=== PATIENT | female | born 1940 | race Caucasian/White ===

== ENCOUNTER 2022-02-13 16:15 | Inpatient (IN) | payer OTHER ==
[~2022-02-13] VITALS: Ht 160 cm; Wt 73.0 kg
[~2022-02-13 16:15] MED LIST: ACET325T PO; ATEN-167 PO; LEVO50CA4 PO; LOSA1TAB15 PO; OXYC-128 PO; PANT20TA2 PO; ROCPM1 IV; SIMV40TA2 PO
[2022-02-13 16:17] VITALS: BP_SYST 115
[2022-02-13] MEDS ORDERED: SYN50 PO (16:40)
[2022-02-13] MEDS ORDERED: CYCL10TA24 PO (16:40)
[2022-02-13] MEDS ORDERED: HYDR-3927 PO (16:40)
[2022-02-13] MEDS ORDERED: ATEN-168 PO (16:40)
[2022-02-13 17:56] LABS: BASOPHILS # (AUTO) 0.1 K/uL (0.0-0.2); BASOPHILS % (AUTO) 0.9 % (0.0-2.0); EOSINOPHILS # (AUTO) 0.6 K/uL (0.0-0.4); EOSINOPHILS % (AUTO) 3.7 % (0.0-4.0); HEMATOCRIT 37.4 % (36-48); HEMOGLOBIN 12.1 g/dL (12.0-16.0); LYMPHOCYTES # (AUTO) 1.3 K/uL (1.0-5.5); LYMPHOCYTES % (AUTO) 8.8 % (20.5-51.5); MEAN CORPUSCULAR HEMOGLOBIN 28 pg (27-31); MEAN CORPUSCULAR HGB CONC 32 % (32-36); MEAN CORPUSCULAR VOLUME 88 fL (79.0-98.0); MONOCYTES # (AUTO) 1.4 K/uL (0.0-1.0); MONOCYTES % (AUTO) 9.5 % (1.7-9.3); NEUTROPHILS # (AUTO) 11.8 K/uL (1.8-7.7); NEUTROPHILS % (AUTO) 77.1 % (40.0-70.0); PLATELET COUNT (AUTO) 529 K/uL (130-430); RED BLOOD CELL COUNT(AUTO) 4.25 MIL/uL (4.2-6.2); RED CELL DISTRIBUTION WIDTH 16.2 % (9.0-15.0); WHITE BLOOD COUNT (AUTO) 15.3 K/uL (4.8-10.8)
[2022-02-13 18:07] LABS: ANION GAP 11 (5-15); CALCIUM 10.1 mg/dL (8.4-11.0); CHLORIDE 101 mmol/L (98-107); CREATININE 1.36 mg/dL (0.55-1.30); GLUCOSE 100 mg/dL (70-99); UREA NITROGEN, BLOOD 35 mg/dL (8-21)
[2022-02-13 18:13] LABS: ALANINE AMINOTRANSFERASE 12 U/L (12-78); ALBUMIN 3.2 g/dL (3.4-4.8); ASPARTATE AMINOTRANSFERASE 20 U/L (10-37); TOTAL BILIRUBIN 0.5 mg/dL (0.0-1.0)
[2022-02-13 18:14] LABS: INR 1.8 (0.8-1.2); PROTHROMBIN TIME 18.6 SECS (9.5-12.5)
[2022-02-13] MEDS ORDERED: WARF1TAB84 PO (18:20)
[2022-02-13] MEDS ORDERED: HYDROcodone/ACETAMIN 5-325 MG TAB (NORCO/ VICODIN) PO ONE (19:30)
[2022-02-13 20:20] LABS: BILIRUBIN,URINE NEGATIVE (NEGATIVE); BLOOD, URINE 2+ (NEGATIVE); CLARITY/URINE TURBID (CLEAR); COLOR,URINE YELLOW (YELLOW); GLUCOSE,URINE NEGATIVE (NEGATIVE); KETONES,URINE NEGATIVE (NEGATIVE); LEUKOCYTE ESTERASE ,URINE 3+ (NEGATIVE); NITRITE, URINE NEGATIVE (NEGATIVE); PROTEIN URINE 1+ (NEGATIVE); UROBILINOGEN,URINE 0.2 (0.2-1.0)
[2022-02-13 20:30] LABS: BACTERIA,URINE MANY /HPF (None Seen); RBC,URINE 20-50 /HPF (0-3); WBC,URINE >100 /HPF (0-3)
[2022-02-13] MEDS ORDERED: cefTRIAXone 1 GM in D5W 50 ML IV ONE (23:00)
[2022-02-13] MEDS ORDERED: NACL 0.9% 1,000 ML IV ONE (23:00)
[2022-02-13] MEDS ORDERED: cefTRIAXone 1 GM VIAL ONE (23:28)
[2022-02-14] MEDS ORDERED: HYDROcodone/ACETAMIN 10-325 MG TAB PO ONE (03:00)
[2022-02-14 11:01] VITALS: BP_SYST 126
[2022-02-14] MEDS ORDERED: ACETAMINOPHEN 325 MG TABLET PO PRN (11:45)
[2022-02-14] MEDS ORDERED: ONDANSETRON HCL 4 MG/2 ML VIAL IVP PRN (11:45)
[2022-02-14] MEDS ORDERED: NALOXONE HCL 0.4 MG/ML AMP (NARCAN) IVP PRN (11:45)
[2022-02-14] MEDS ORDERED: LEVOTHYROXINE SODIUM 0.05 MG TABLET PO ONE (11:45)
[2022-02-14] MEDS ORDERED: LEVOTHYROXINE SODIUM PO SCH (11:45)
[2022-02-14] MEDS ORDERED: LOSARTAN POTASSIUM 50 MG TABLET (COZAAR) PO ONE (12:00)
[2022-02-14] MEDS ORDERED: HYDROCHLOROTHIAZIDE 25 MG TABLET (HCTZ) PO ONE (12:00)
[2022-02-14] MEDS ORDERED: PANTOPRAZOLE SODIUM 40 MG TAB PO ONE (12:00)
[2022-02-14] MEDS ORDERED: ATENOLOL 50 MG TABLET (TENORMIN) PO ONE (12:00)
[2022-02-14] MEDS: HYDROcodone/ACETAMIN 10-325 MG TAB PO PRN ×2 (13:29→21:22)
[2022-02-14] MEDS: NORMAL SALINE 5 ML DISP.SYRIN IVF SCH ×4 (13:31→21:18)
[2022-02-14 13:36] VITALS: BP_SYST 126
[2022-02-14 15:42] VITALS: BP_SYST 110
[2022-02-14 16:00] VITALS: BP_SYST 110
[2022-02-14] MEDS ORDERED: WARFARIN SODIUM 1 MG TABLET PO SCH (18:00)
[2022-02-14 20:00] VITALS: BP_SYST 104
[2022-02-14] MEDS: SIMVASTATIN 40 MG TABLET PO SCH (21:17)
[2022-02-14] MEDS: cefTRIAXone 1 GM IVPB PREMIX 50 ML IV SCH (21:17)
[2022-02-14] MEDS: CYCLOBENZAPRINE HCL 10 MG TABLET (FLEXERIL) PO SCH (21:17)
[2022-02-15] VITALS (7 sets, daily range): BP systolic 101–134
[2022-02-15] MEDS: NORMAL SALINE 5 ML DISP.SYRIN IVF SCH ×6 (06:00→21:54)
[2022-02-15] MEDS: LEVOTHYROXINE SODIUM 0.05 MG TABLET PO SCH (06:20)
[2022-02-15] MEDS: HYDROcodone/ACETAMIN 10-325 MG TAB PO PRN (06:26)
[2022-02-15 07:04] LABS: BASOPHILS # (AUTO) 0.1 K/uL (0.0-0.2); BASOPHILS % (AUTO) 0.8 % (0.0-2.0); EOSINOPHILS # (AUTO) 0.6 K/uL (0.0-0.4); EOSINOPHILS % (AUTO) 5.2 % (0.0-4.0); HEMATOCRIT 33.4 % (36-48); HEMOGLOBIN 10.8 g/dL (12.0-16.0); LYMPHOCYTES # (AUTO) 1.3 K/uL (1.0-5.5); LYMPHOCYTES % (AUTO) 10.7 % (20.5-51.5); MEAN CORPUSCULAR HEMOGLOBIN 29 pg (27-31); MEAN CORPUSCULAR HGB CONC 32 % (32-36); MEAN CORPUSCULAR VOLUME 89 fL (79.0-98.0); MONOCYTES # (AUTO) 1.3 K/uL (0.0-1.0); MONOCYTES % (AUTO) 10.9 % (1.7-9.3); NEUTROPHILS # (AUTO) 8.8 K/uL (1.8-7.7); NEUTROPHILS % (AUTO) 72.4 % (40.0-70.0); PLATELET COUNT (AUTO) 419 K/uL (130-430); RED BLOOD CELL COUNT(AUTO) 3.75 MIL/uL (4.2-6.2); RED CELL DISTRIBUTION WIDTH 16.5 % (9.0-15.0); WHITE BLOOD COUNT (AUTO) 12.2 K/uL (4.8-10.8)
[2022-02-15 07:59] LABS: ANION GAP 8 (5-15); CALCIUM 9.3 mg/dL (8.4-11.0); CHLORIDE 106 mmol/L (98-107); CREATININE 0.98 mg/dL (0.55-1.30); GLUCOSE 93 mg/dL (70-99); PHOSPHORUS 2.6 mg/dL (2.7-4.5); UREA NITROGEN, BLOOD 25 mg/dL (8-21)
[2022-02-15 08:22] LABS: INR 3.7 (0.8-1.2); PROTHROMBIN TIME 35.3 SECS (9.5-12.5)
[2022-02-15] MEDS: PANTOPRAZOLE SODIUM 40 MG TAB PO SCH (10:23)
[2022-02-15] MEDS: ATENOLOL 50 MG TABLET (TENORMIN) PO SCH (10:24)
[2022-02-15] MEDS: LOSARTAN POTASSIUM 50 MG TABLET (COZAAR) PO SCH (10:25)
[2022-02-15] MEDS: HYDROCHLOROTHIAZIDE 25 MG TABLET (HCTZ) PO SCH (10:27)
[2022-02-15] MEDS ORDERED: NA PHOS 15 MM in NS 250 ML IV ONE (13:30)
[2022-02-15] MEDS: CYCLOBENZAPRINE HCL 10 MG TABLET (FLEXERIL) PO SCH (21:52)
[2022-02-15] MEDS: SIMVASTATIN 40 MG TABLET PO SCH (21:52)
[2022-02-15] MEDS: cefTRIAXone 1 GM IVPB PREMIX 50 ML IV SCH (21:53)
[2022-02-15] MEDS: OXYCODONE/ACETAMINOPHEN 5-325 TABLET PO PRN (21:53)
[2022-02-16 00:14] VITALS: BP_SYST 110
[2022-02-16] MEDS: NORMAL SALINE 5 ML DISP.SYRIN IVF SCH ×4 (06:00→21:16)
[2022-02-16] MEDS: OXYCODONE/ACETAMINOPHEN 5-325 TABLET PO PRN ×3 (07:02→21:15)
[2022-02-16] MEDS: LEVOTHYROXINE SODIUM 0.05 MG TABLET PO SCH (07:05)
[2022-02-16 07:13] LABS: INR 1.5 (0.8-1.2); PROTHROMBIN TIME 15.8 SECS (9.5-12.5)
[2022-02-16 07:19] LABS: BASOPHILS # (AUTO) 0.1 K/uL (0.0-0.2); EOSINOPHILS # (AUTO) 0.6 K/uL (0.0-0.4); EOSINOPHILS % (AUTO) 5.7 % (0.0-4.0); HEMATOCRIT 31.7 % (36-48); HEMOGLOBIN 10.6 g/dL (12.0-16.0); LYMPHOCYTES # (AUTO) 1.6 K/uL (1.0-5.5); LYMPHOCYTES % (AUTO) 14.8 % (20.5-51.5); MEAN CORPUSCULAR HEMOGLOBIN 30 pg (27-31); MEAN CORPUSCULAR HGB CONC 34 % (32-36); MEAN CORPUSCULAR VOLUME 89 fL (79.0-98.0); MONOCYTES # (AUTO) 1.2 K/uL (0.0-1.0); MONOCYTES % (AUTO) 11.3 % (1.7-9.3); NEUTROPHILS # (AUTO) 7.4 K/uL (1.8-7.7); NEUTROPHILS % (AUTO) 67.2 % (40.0-70.0); PLATELET COUNT (AUTO) 397 K/uL (130-430); RED BLOOD CELL COUNT(AUTO) 3.58 MIL/uL (4.2-6.2); RED CELL DISTRIBUTION WIDTH 16.4 % (9.0-15.0)
[2022-02-16 07:55] LABS: ALANINE AMINOTRANSFERASE 9 U/L (12-78); ALBUMIN 2.4 g/dL (3.4-4.8); ANION GAP 8 (5-15); ASPARTATE AMINOTRANSFERASE 15 U/L (10-37); C-REACTIVE PROTEIN QUANT 11.3 mg/dL (0-0.5); CALCIUM 9.2 mg/dL (8.4-11.0); CHLORIDE 103 mmol/L (98-107); CREATININE 0.83 mg/dL (0.55-1.30); GLUCOSE 94 mg/dL (70-99); PHOSPHORUS 3.5 mg/dL (2.7-4.5); TOTAL BILIRUBIN 0.4 mg/dL (0.0-1.0); UREA NITROGEN, BLOOD 21 mg/dL (8-21)
[2022-02-16 09:28] VITALS: BP_SYST 111
[2022-02-16] MEDS: LOSARTAN POTASSIUM 50 MG TABLET (COZAAR) PO SCH (09:30)
[2022-02-16] MEDS: PANTOPRAZOLE SODIUM 40 MG TAB PO SCH (09:30)
[2022-02-16] MEDS: ATENOLOL 50 MG TABLET (TENORMIN) PO SCH (09:31)
[2022-02-16] MEDS: HYDROCHLOROTHIAZIDE 25 MG TABLET (HCTZ) PO SCH (09:31)
[2022-02-16 11:46] LABS: ERYTHROCYTE SEDIMENTATION RATE 95 MM/HR (0-20)
[2022-02-16 13:45] VITALS: BP_SYST 101
[2022-02-16] MEDS: WARFARIN SODIUM 1 MG TABLET PO SCH (18:21)
[2022-02-16 18:24] VITALS: BP_SYST 99
[2022-02-16 20:15] VITALS: BP_SYST 116
[2022-02-16] MEDS: CYCLOBENZAPRINE HCL 10 MG TABLET (FLEXERIL) PO SCH (21:15)
[2022-02-16] MEDS: SIMVASTATIN 40 MG TABLET PO SCH (21:15)
[2022-02-16] MEDS: cefTRIAXone 1 GM IVPB PREMIX 50 ML IV SCH (21:16)
[2022-02-17 00:22] VITALS: BP_SYST 118
[2022-02-17] MEDS: NORMAL SALINE 5 ML DISP.SYRIN IVF SCH ×3 (05:38→20:31)
[2022-02-17] MEDS: LEVOTHYROXINE SODIUM 0.05 MG TABLET PO SCH (06:34)
[2022-02-17 07:32] LABS: BASOPHILS # (AUTO) 0.1 K/uL (0.0-0.2); BASOPHILS % (AUTO) 1.1 % (0.0-2.0); EOSINOPHILS # (AUTO) 0.8 K/uL (0.0-0.4); EOSINOPHILS % (AUTO) 6.1 % (0.0-4.0); HEMATOCRIT 33.5 % (36-48); HEMOGLOBIN 10.9 g/dL (12.0-16.0); LYMPHOCYTES # (AUTO) 1.8 K/uL (1.0-5.5); LYMPHOCYTES % (AUTO) 14.5 % (20.5-51.5); MEAN CORPUSCULAR HEMOGLOBIN 29 pg (27-31); MEAN CORPUSCULAR HGB CONC 33 % (32-36); MEAN CORPUSCULAR VOLUME 89 fL (79.0-98.0); MONOCYTES # (AUTO) 1.3 K/uL (0.0-1.0); MONOCYTES % (AUTO) 10.7 % (1.7-9.3); NEUTROPHILS # (AUTO) 8.4 K/uL (1.8-7.7); NEUTROPHILS % (AUTO) 67.6 % (40.0-70.0); PLATELET COUNT (AUTO) 414 K/uL (130-430); RED BLOOD CELL COUNT(AUTO) 3.75 MIL/uL (4.2-6.2); RED CELL DISTRIBUTION WIDTH 16.3 % (9.0-15.0); WHITE BLOOD COUNT (AUTO) 12.4 K/uL (4.8-10.8)
[2022-02-17 07:57] VITALS: BP_SYST 99
[2022-02-17 08:01] LABS: INR 1.4 (0.8-1.2); PROTHROMBIN TIME 14.1 SECS (9.5-12.5)
[2022-02-17 08:02] LABS: ALANINE AMINOTRANSFERASE 8 U/L (12-78); ALBUMIN 2.5 g/dL (3.4-4.8); ANION GAP 8 (5-15); ASPARTATE AMINOTRANSFERASE 16 U/L (10-37); CALCIUM 9.7 mg/dL (8.4-11.0); CHLORIDE 101 mmol/L (98-107); CREATININE 0.96 mg/dL (0.55-1.30); GLUCOSE 94 mg/dL (70-99); TOTAL BILIRUBIN 0.5 mg/dL (0.0-1.0); UREA NITROGEN, BLOOD 26 mg/dL (8-21)
[2022-02-17] MEDS: ATENOLOL 50 MG TABLET (TENORMIN) PO SCH (08:19)
[2022-02-17] MEDS: HYDROCHLOROTHIAZIDE 25 MG TABLET (HCTZ) PO SCH (08:19)
[2022-02-17] MEDS: LOSARTAN POTASSIUM 50 MG TABLET (COZAAR) PO SCH (08:19)
[2022-02-17] MEDS: PANTOPRAZOLE SODIUM 40 MG TAB PO SCH (08:19)
[2022-02-17] MEDS: OXYCODONE/ACETAMINOPHEN 5-325 TABLET PO PRN ×2 (08:23→20:30)
[2022-02-17 11:35] VITALS: BP_SYST 123
[2022-02-17 15:50] VITALS: BP_SYST 104
[2022-02-17] MEDS: WARFARIN SODIUM 1 MG TABLET PO SCH (17:02)
[2022-02-17 20:00] VITALS: BP_SYST 130
[2022-02-17] MEDS: cefTRIAXone 1 GM IVPB PREMIX 50 ML IV SCH (20:29)
[2022-02-17] MEDS: SIMVASTATIN 40 MG TABLET PO SCH (20:30)
[2022-02-17] MEDS: CYCLOBENZAPRINE HCL 10 MG TABLET (FLEXERIL) PO SCH (20:30)
[2022-02-18 02:23] VITALS: BP_SYST 125
[2022-02-18 07:02] LABS: BASOPHILS # (AUTO) 0.1 K/uL (0.0-0.2); BASOPHILS % (AUTO) 0.7 % (0.0-2.0); EOSINOPHILS # (AUTO) 0.6 K/uL (0.0-0.4); EOSINOPHILS % (AUTO) 4.8 % (0.0-4.0); HEMOGLOBIN 10.8 g/dL (12.0-16.0); LYMPHOCYTES # (AUTO) 1.4 K/uL (1.0-5.5); LYMPHOCYTES % (AUTO) 11.2 % (20.5-51.5); MEAN CORPUSCULAR HEMOGLOBIN 29 pg (27-31); MEAN CORPUSCULAR HGB CONC 33 % (32-36); MEAN CORPUSCULAR VOLUME 89 fL (79.0-98.0); MONOCYTES # (AUTO) 1.7 K/uL (0.0-1.0); MONOCYTES % (AUTO) 13.1 % (1.7-9.3); NEUTROPHILS # (AUTO) 8.9 K/uL (1.8-7.7); NEUTROPHILS % (AUTO) 70.2 % (40.0-70.0); PLATELET COUNT (AUTO) 424 K/uL (130-430); RED BLOOD CELL COUNT(AUTO) 3.72 MIL/uL (4.2-6.2); WHITE BLOOD COUNT (AUTO) 12.7 K/uL (4.8-10.8)
[2022-02-18] MEDS: LEVOTHYROXINE SODIUM 0.05 MG TABLET PO SCH (07:10)
[2022-02-18] MEDS: NORMAL SALINE 5 ML DISP.SYRIN IVF SCH ×3 (07:11→21:55)
[2022-02-18 07:53] LABS: ANION GAP 5 (5-15); CALCIUM 9.9 mg/dL (8.4-11.0); CHLORIDE 101 mmol/L (98-107); CREATININE 0.88 mg/dL (0.55-1.30); GLUCOSE 83 mg/dL (70-99); UREA NITROGEN, BLOOD 24 mg/dL (8-21)
[2022-02-18] MEDS: OXYCODONE/ACETAMINOPHEN 5-325 TABLET PO PRN ×2 (08:04→14:00)
[2022-02-18 08:13] VITALS: BP_SYST 104
[2022-02-18 08:43] LABS: INR 1.3 (0.8-1.2); PROTHROMBIN TIME 13.3 SECS (9.5-12.5)
[2022-02-18] MEDS: LOSARTAN POTASSIUM 50 MG TABLET (COZAAR) PO SCH (09:07)
[2022-02-18] MEDS: PANTOPRAZOLE SODIUM 40 MG TAB PO SCH (09:07)
[2022-02-18] MEDS: HYDROCHLOROTHIAZIDE 25 MG TABLET (HCTZ) PO SCH (09:08)
[2022-02-18] MEDS: ATENOLOL 50 MG TABLET (TENORMIN) PO SCH (09:08)
[2022-02-18 12:52] VITALS: BP_SYST 111
[2022-02-18] MEDS: FLUCONAZOLE 100 mg/ NS 50 ML IV SCH (13:54)
[2022-02-18] MEDS ORDERED: KETOROLAC TROMETHAMINE 15 MG VIAL IM ONE (14:45)
[2022-02-18] MEDS ORDERED: MELOXICAM 7.5 MG TABLET PO ONE (14:45)
[2022-02-18 18:00] VITALS: BP_SYST 97
[2022-02-18] MEDS: WARFARIN SODIUM 1 MG TABLET PO SCH (18:01)
[2022-02-18 20:30] VITALS: BP_SYST 90
[2022-02-18] MEDS: ACETAMINOPHEN 325 MG TABLET PO PRN (21:54)
[2022-02-18] MEDS: CYCLOBENZAPRINE HCL 10 MG TABLET (FLEXERIL) PO SCH (21:54)
[2022-02-18] MEDS: SIMVASTATIN 40 MG TABLET PO SCH (21:54)
[2022-02-18] MEDS: cefTRIAXone 1 GM IVPB PREMIX 50 ML IV SCH (21:55)
[2022-02-19] MEDS: HYDROcodone/ACETAMIN 10-325 MG TAB PO PRN ×4 (01:12→22:05)
[2022-02-19 01:30] VITALS: BP_SYST 100
[2022-02-19 06:50] LABS: BASOPHILS # (AUTO) 0.1 K/uL (0.0-0.2); BASOPHILS % (AUTO) 0.6 % (0.0-2.0); EOSINOPHILS # (AUTO) 0.8 K/uL (0.0-0.4); EOSINOPHILS % (AUTO) 7.3 % (0.0-4.0); HEMATOCRIT 31.2 % (36-48); HEMOGLOBIN 10.4 g/dL (12.0-16.0); LYMPHOCYTES # (AUTO) 1.1 K/uL (1.0-5.5); LYMPHOCYTES % (AUTO) 10.5 % (20.5-51.5); MEAN CORPUSCULAR HEMOGLOBIN 30 pg (27-31); MEAN CORPUSCULAR HGB CONC 33 % (32-36); MEAN CORPUSCULAR VOLUME 89 fL (79.0-98.0); MONOCYTES # (AUTO) 1.4 K/uL (0.0-1.0); MONOCYTES % (AUTO) 12.8 % (1.7-9.3); NEUTROPHILS # (AUTO) 7.6 K/uL (1.8-7.7); NEUTROPHILS % (AUTO) 68.8 % (40.0-70.0); PLATELET COUNT (AUTO) 402 K/uL (130-430); RED BLOOD CELL COUNT(AUTO) 3.49 MIL/uL (4.2-6.2); RED CELL DISTRIBUTION WIDTH 15.6 % (9.0-15.0)
[2022-02-19] MEDS: NORMAL SALINE 5 ML DISP.SYRIN IVF SCH ×3 (06:53→22:05)
[2022-02-19] MEDS: LEVOTHYROXINE SODIUM 0.05 MG TABLET PO SCH (06:53)
[2022-02-19 06:58] LABS: INR 1.3 (0.8-1.2); PROTHROMBIN TIME 13.4 SECS (9.5-12.5)
[2022-02-19 07:30] VITALS: BP_SYST 99
[2022-02-19] MEDS: PANTOPRAZOLE SODIUM 40 MG TAB PO SCH (08:51)
[2022-02-19] MEDS: LOSARTAN POTASSIUM 50 MG TABLET (COZAAR) PO SCH (09:00)
[2022-02-19] MEDS ORDERED: MELOXICAM 7.5 MG TABLET PO SCH (09:00)
[2022-02-19] MEDS: ATENOLOL 50 MG TABLET (TENORMIN) PO SCH (09:00)
[2022-02-19] MEDS: HYDROCHLOROTHIAZIDE 25 MG TABLET (HCTZ) PO SCH (09:00)
[2022-02-19 11:34] VITALS: BP_SYST 120
[2022-02-19] MEDS ORDERED: PANTOPRAZOLE SODIUM 40 MG TAB PO SCH (12:30)
[2022-02-19] MEDS ORDERED: KETOROLAC TROMETHAMINE 15 MG VIAL IVP ONE (12:45)
[2022-02-19] MEDS: FLUCONAZOLE 100 mg/ NS 50 ML IV SCH (12:49)
[2022-02-19 15:57] VITALS: BP_SYST 102
[2022-02-19] MEDS: HONEY WOUND DRESSING 1 EACH TP SCH (16:03)
[2022-02-19] MEDS: WARFARIN SODIUM 1 MG TABLET PO SCH (17:10)
[2022-02-19] MEDS ORDERED: KETOROLAC TROMETHAMINE 15 MG VIAL IVP SCH (18:00)
[2022-02-19 20:00] VITALS: BP_SYST 117
[2022-02-19] MEDS: cefTRIAXone 1 GM IVPB PREMIX 50 ML IV SCH (22:04)
[2022-02-19] MEDS: CYCLOBENZAPRINE HCL 10 MG TABLET (FLEXERIL) PO SCH (22:05)
[2022-02-19] MEDS: SIMVASTATIN 40 MG TABLET PO SCH (22:06)
[2022-02-19] MEDS: KETOROLAC TROMETHAMINE 15 MG VIAL IVP SCH (23:50)
[2022-02-20 00:12] VITALS: BP_SYST 114
[2022-02-20] MEDS: NORMAL SALINE 5 ML DISP.SYRIN IVF SCH ×3 (06:16→22:26)
[2022-02-20] MEDS: LEVOTHYROXINE SODIUM 0.05 MG TABLET PO SCH (06:17)
[2022-02-20] MEDS: KETOROLAC TROMETHAMINE 15 MG VIAL IVP SCH ×4 (06:18→23:49)
[2022-02-20] MEDS: HONEY WOUND DRESSING 1 EACH TP SCH (09:00)
[2022-02-20] MEDS: HYDROCHLOROTHIAZIDE 25 MG TABLET (HCTZ) PO SCH (09:17)
[2022-02-20] MEDS: LOSARTAN POTASSIUM 50 MG TABLET (COZAAR) PO SCH (09:18)
[2022-02-20] MEDS: PANTOPRAZOLE SODIUM 40 MG TAB PO SCH (09:18)
[2022-02-20] MEDS: ATENOLOL 50 MG TABLET (TENORMIN) PO SCH (09:19)
[2022-02-20] MEDS: BALSAM PERU/CASTOR OIL 56.7 GM OINT...G. TP SCH (09:22)
[2022-02-20 09:47] LABS: BASOPHILS # (AUTO) 0.1 K/uL (0.0-0.2); BASOPHILS % (AUTO) 0.8 % (0.0-2.0); EOSINOPHILS # (AUTO) 0.9 K/uL (0.0-0.4); EOSINOPHILS % (AUTO) 9.3 % (0.0-4.0); HEMATOCRIT 31.4 % (36-48); HEMOGLOBIN 10.1 g/dL (12.0-16.0); LYMPHOCYTES # (AUTO) 1.1 K/uL (1.0-5.5); LYMPHOCYTES % (AUTO) 12.2 % (20.5-51.5); MEAN CORPUSCULAR HEMOGLOBIN 29 pg (27-31); MEAN CORPUSCULAR HGB CONC 32 % (32-36); MEAN CORPUSCULAR VOLUME 90 fL (79.0-98.0); MONOCYTES # (AUTO) 1.3 K/uL (0.0-1.0); MONOCYTES % (AUTO) 13.7 % (1.7-9.3); PLATELET COUNT (AUTO) 409 K/uL (130-430); RED CELL DISTRIBUTION WIDTH 16.1 % (9.0-15.0); WHITE BLOOD COUNT (AUTO) 9.4 K/uL (4.8-10.8)
[2022-02-20 10:03] LABS: ANION GAP 7 (5-15); CALCIUM 9.5 mg/dL (8.4-11.0); CHLORIDE 102 mmol/L (98-107); CREATININE 2.09 mg/dL (0.55-1.30); GLUCOSE 85 mg/dL (70-99); UREA NITROGEN, BLOOD 51 mg/dL (8-21)
[2022-02-20 10:04] LABS: INR 1.5 (0.8-1.2)
[2022-02-20 11:38] VITALS: BP_SYST 98
[2022-02-20] MEDS: FLUCONAZOLE 100 mg/ NS 50 ML IV SCH (12:08)
[2022-02-20 15:29] VITALS: BP_SYST 109
[2022-02-20] MEDS: WARFARIN SODIUM 1 MG TABLET PO SCH (17:24)
[2022-02-20 20:00] VITALS: BP_SYST 106
[2022-02-20 21:54] LABS: TPROTEIN U,24HR 160.5 mg/24HR (0-130)
[2022-02-20] MEDS: CYCLOBENZAPRINE HCL 10 MG TABLET (FLEXERIL) PO SCH (22:26)
[2022-02-20] MEDS: SIMVASTATIN 40 MG TABLET PO SCH (22:26)
[2022-02-20] MEDS: cefTRIAXone 1 GM IVPB PREMIX 50 ML IV SCH (22:27)
[2022-02-21 00:25] VITALS: BP_SYST 114
[2022-02-21] MEDS: LEVOTHYROXINE SODIUM 0.05 MG TABLET PO SCH (05:59)
[2022-02-21] MEDS: NORMAL SALINE 5 ML DISP.SYRIN IVF SCH ×3 (05:59→21:35)
[2022-02-21] MEDS: KETOROLAC TROMETHAMINE 15 MG VIAL IVP SCH ×4 (05:59→23:58)
[2022-02-21 08:00] VITALS: BP_SYST 126
[2022-02-21 08:17] LABS: BASOPHILS # (AUTO) 0.1 K/uL (0.0-0.2); BASOPHILS % (AUTO) 0.9 % (0.0-2.0); EOSINOPHILS % (AUTO) 9.3 % (0.0-4.0); HEMATOCRIT 30.7 % (36-48); HEMOGLOBIN 10.2 g/dL (12.0-16.0); LYMPHOCYTES # (AUTO) 1.2 K/uL (1.0-5.5); LYMPHOCYTES % (AUTO) 11.9 % (20.5-51.5); MEAN CORPUSCULAR HEMOGLOBIN 30 pg (27-31); MEAN CORPUSCULAR HGB CONC 33 % (32-36); MEAN CORPUSCULAR VOLUME 89 fL (79.0-98.0); MONOCYTES # (AUTO) 1.1 K/uL (0.0-1.0); MONOCYTES % (AUTO) 10.8 % (1.7-9.3); NEUTROPHILS # (AUTO) 6.9 K/uL (1.8-7.7); NEUTROPHILS % (AUTO) 67.1 % (40.0-70.0); PLATELET COUNT (AUTO) 439 K/uL (130-430); RED BLOOD CELL COUNT(AUTO) 3.45 MIL/uL (4.2-6.2); RED CELL DISTRIBUTION WIDTH 15.7 % (9.0-15.0); WHITE BLOOD COUNT (AUTO) 10.3 K/uL (4.8-10.8)
[2022-02-21 08:19] LABS: INR 1.5 (0.8-1.2); PROTHROMBIN TIME 15.8 SECS (9.5-12.5)
[2022-02-21 08:29] LABS: ANION GAP 9 (5-15); C-REACTIVE PROTEIN QUANT 11.9 mg/dL (0-0.5); CALCIUM 9.3 mg/dL (8.4-11.0); CHLORIDE 102 mmol/L (98-107); CREATININE 2.18 mg/dL (0.55-1.30); GLUCOSE 84 mg/dL (70-99); PHOSPHORUS 3.8 mg/dL (2.7-4.5); UREA NITROGEN, BLOOD 62 mg/dL (8-21)
[2022-02-21] MEDS: PANTOPRAZOLE SODIUM 40 MG TAB PO SCH (08:38)
[2022-02-21] MEDS: LOSARTAN POTASSIUM 50 MG TABLET (COZAAR) PO SCH (08:39)
[2022-02-21] MEDS: HYDROCHLOROTHIAZIDE 25 MG TABLET (HCTZ) PO SCH (08:40)
[2022-02-21] MEDS: ATENOLOL 50 MG TABLET (TENORMIN) PO SCH (08:40)
[2022-02-21] MEDS: HYDROcodone/ACETAMIN 10-325 MG TAB PO PRN (10:56)
[2022-02-21 11:39] LABS: ERYTHROCYTE SEDIMENTATION RATE 104 MM/HR (0-20)
[2022-02-21 12:07] VITALS: BP_SYST 132
[2022-02-21] MEDS: BALSAM PERU/CASTOR OIL 56.7 GM OINT...G. TP SCH (12:38)
[2022-02-21] MEDS: HONEY WOUND DRESSING 1 EACH TP SCH (12:38)
[2022-02-21 16:10] VITALS: BP_SYST 120
[2022-02-21] MEDS: WARFARIN SODIUM 1 MG TABLET PO SCH (17:50)
[2022-02-21 20:31] VITALS: BP_SYST 115
[2022-02-21] MEDS: CYCLOBENZAPRINE HCL 10 MG TABLET (FLEXERIL) PO SCH (21:06)
[2022-02-21] MEDS: SIMVASTATIN 40 MG TABLET PO SCH (21:07)
[2022-02-22] MEDS: HYDROcodone/ACETAMIN 10-325 MG TAB PO PRN ×2 (02:52→11:59)
[2022-02-22] MEDS: NORMAL SALINE 5 ML DISP.SYRIN IVF SCH ×3 (05:01→23:15)
[2022-02-22 05:06] VITALS: BP_SYST 110
[2022-02-22] MEDS: KETOROLAC TROMETHAMINE 15 MG VIAL IVP SCH ×4 (05:53→23:15)
[2022-02-22] MEDS: LEVOTHYROXINE SODIUM 0.05 MG TABLET PO SCH (05:53)
[2022-02-22 07:46] LABS: INR 1.8 (0.8-1.2); PROTHROMBIN TIME 17.5 SECS (9.5-12.5)
[2022-02-22 08:00] VITALS: BP_SYST 128
[2022-02-22] MEDS: LOSARTAN POTASSIUM 50 MG TABLET (COZAAR) PO SCH (08:37)
[2022-02-22] MEDS: ATENOLOL 50 MG TABLET (TENORMIN) PO SCH (08:38)
[2022-02-22] MEDS: HYDROCHLOROTHIAZIDE 25 MG TABLET (HCTZ) PO SCH (08:39)
[2022-02-22] MEDS: PANTOPRAZOLE SODIUM 40 MG TAB PO SCH (08:39)
[2022-02-22] MEDS ORDERED: DOCUSATE SODIUM 100 MG CAPSULE PO ONE (11:30)
[2022-02-22] MEDS ORDERED: POLYETHYLENE GLYCOL 3350, 17 GM/ POWD.PACK PO ONE (11:30)
[2022-02-22 12:00] VITALS: BP_SYST 119
[2022-02-22] MEDS: BALSAM PERU/CASTOR OIL 56.7 GM OINT...G. TP SCH (12:02)
[2022-02-22] MEDS: HONEY WOUND DRESSING 1 EACH TP SCH (12:02)
[2022-02-22 16:01] VITALS: BP_SYST 126
[2022-02-22] MEDS: WARFARIN SODIUM 1 MG TABLET PO SCH (18:29)
[2022-02-22 20:00] VITALS: BP_SYST 118
[2022-02-22] MEDS: SIMVASTATIN 40 MG TABLET PO SCH (23:03)
[2022-02-22] MEDS: DOCUSATE SODIUM 100 MG CAPSULE PO SCH (23:04)
[2022-02-22] MEDS: CYCLOBENZAPRINE HCL 10 MG TABLET (FLEXERIL) PO SCH (23:04)
[2022-02-23] VITALS: BP_SYST 118
[2022-02-23] MEDS: OXYCODONE/ACETAMINOPHEN 5-325 TABLET PO PRN (04:56)
[2022-02-23] MEDS: KETOROLAC TROMETHAMINE 15 MG VIAL IVP SCH ×3 (06:26→18:24)
[2022-02-23] MEDS: LEVOTHYROXINE SODIUM 0.05 MG TABLET PO SCH (06:26)
[2022-02-23] MEDS: NORMAL SALINE 5 ML DISP.SYRIN IVF SCH ×3 (06:27→22:19)
[2022-02-23 06:48] LABS: BASOPHILS # (AUTO) 0.1 K/uL (0.0-0.2); BASOPHILS % (AUTO) 1.1 % (0.0-2.0); EOSINOPHILS % (AUTO) 9.3 % (0.0-4.0); HEMATOCRIT 31.3 % (36-48); HEMOGLOBIN 10.3 g/dL (12.0-16.0); LYMPHOCYTES # (AUTO) 1.6 K/uL (1.0-5.5); LYMPHOCYTES % (AUTO) 14.7 % (20.5-51.5); MEAN CORPUSCULAR HEMOGLOBIN 29 pg (27-31); MEAN CORPUSCULAR HGB CONC 33 % (32-36); MEAN CORPUSCULAR VOLUME 89 fL (79.0-98.0); MONOCYTES # (AUTO) 1.1 K/uL (0.0-1.0); NEUTROPHILS % (AUTO) 64.9 % (40.0-70.0); PLATELET COUNT (AUTO) 468 K/uL (130-430); RED BLOOD CELL COUNT(AUTO) 3.53 MIL/uL (4.2-6.2); RED CELL DISTRIBUTION WIDTH 15.8 % (9.0-15.0); WHITE BLOOD COUNT (AUTO) 10.8 K/uL (4.8-10.8)
[2022-02-23 07:42] LABS: INR 1.9 (0.8-1.2)
[2022-02-23 08:02] LABS: ALANINE AMINOTRANSFERASE 12 U/L (12-78); ALBUMIN 2.4 g/dL (3.4-4.8); ANION GAP 10 (5-15); ASPARTATE AMINOTRANSFERASE 19 U/L (10-37); CALCIUM 9.8 mg/dL (8.4-11.0); CHLORIDE 100 mmol/L (98-107); CREATININE 2.19 mg/dL (0.55-1.30); GLUCOSE 92 mg/dL (70-99); TOTAL BILIRUBIN 0.3 mg/dL (0.0-1.0); UREA NITROGEN, BLOOD 80 mg/dL (8-21)
[2022-02-23 08:15] VITALS: BP_SYST 121
[2022-02-23] MEDS: DOCUSATE SODIUM 100 MG CAPSULE PO SCH ×2 (09:57→22:18)
[2022-02-23] MEDS: PANTOPRAZOLE SODIUM 40 MG TAB PO SCH (09:57)
[2022-02-23] MEDS: ATENOLOL 50 MG TABLET (TENORMIN) PO SCH (09:57)
[2022-02-23] MEDS: HYDROCHLOROTHIAZIDE 25 MG TABLET (HCTZ) PO SCH (09:58)
[2022-02-23] MEDS: LOSARTAN POTASSIUM 50 MG TABLET (COZAAR) PO SCH (09:58)
[2022-02-23] MEDS: POLYETHYLENE GLYCOL 3350, 17 GM/ POWD.PACK PO SCH (09:59)
[2022-02-23] MEDS: BALSAM PERU/CASTOR OIL 56.7 GM OINT...G. TP SCH (10:03)
[2022-02-23] MEDS: HYDROcodone/ACETAMIN 10-325 MG TAB PO PRN (10:06)
[2022-02-23 11:30] VITALS: BP_SYST 119
[2022-02-23] MEDS ORDERED: FLUCONAZOLE 100 MG TABLET (DIFLUCAN) PO ONE (12:00)
[2022-02-23] MEDS: HONEY WOUND DRESSING 1 EACH TP SCH (14:03)
[2022-02-23 15:39] VITALS: BP_SYST 114
[2022-02-23] MEDS: WARFARIN SODIUM 1 MG TABLET PO SCH (18:23)
[2022-02-23 20:00] VITALS: BP_SYST 105
[2022-02-23] MEDS: SIMVASTATIN 40 MG TABLET PO SCH (22:18)
[2022-02-23] MEDS: CYCLOBENZAPRINE HCL 10 MG TABLET (FLEXERIL) PO SCH (22:18)
[2022-02-24] VITALS: BP_SYST 119
[2022-02-24] MEDS ORDERED: SODIUM POLYSTYRENE SULFONATE 15 GM/60 ML UDBTL PO ONE
[2022-02-24] MEDS: KETOROLAC TROMETHAMINE 15 MG VIAL IVP SCH ×2 (01:05→06:07)
[2022-02-24] MEDS: D5/0.45 NS 1,000 ML IV SCH ×3 (01:48→22:15)
[2022-02-24] MEDS: NORMAL SALINE 5 ML DISP.SYRIN IVF SCH ×3 (06:08→22:00)
[2022-02-24] MEDS: LEVOTHYROXINE SODIUM 0.05 MG TABLET PO SCH (06:08)
[2022-02-24 07:07] LABS: INR 2.2 (0.8-1.2); PROTHROMBIN TIME 21.4 SECS (9.5-12.5)
[2022-02-24 07:11] LABS: ANION GAP 11 (5-15); BASOPHILS # (AUTO) 0.1 K/uL (0.0-0.2); CALCIUM 9.7 mg/dL (8.4-11.0); CHLORIDE 101 mmol/L (98-107); CREATININE 2.29 mg/dL (0.55-1.30); EOSINOPHILS # (AUTO) 0.8 K/uL (0.0-0.4); EOSINOPHILS % (AUTO) 8.2 % (0.0-4.0); GLUCOSE 107 mg/dL (70-99); HEMATOCRIT 30.3 % (36-48); HEMOGLOBIN 9.9 g/dL (12.0-16.0); LYMPHOCYTES # (AUTO) 1.4 K/uL (1.0-5.5); LYMPHOCYTES % (AUTO) 13.5 % (20.5-51.5); MEAN CORPUSCULAR HEMOGLOBIN 29 pg (27-31); MEAN CORPUSCULAR HGB CONC 33 % (32-36); MEAN CORPUSCULAR VOLUME 90 fL (79.0-98.0); MONOCYTES # (AUTO) 0.9 K/uL (0.0-1.0); MONOCYTES % (AUTO) 9.1 % (1.7-9.3); NEUTROPHILS % (AUTO) 68.2 % (40.0-70.0); PLATELET COUNT (AUTO) 454 K/uL (130-430); RED BLOOD CELL COUNT(AUTO) 3.37 MIL/uL (4.2-6.2); RED CELL DISTRIBUTION WIDTH 16.3 % (9.0-15.0); UREA NITROGEN, BLOOD 93 mg/dL (8-21); WHITE BLOOD COUNT (AUTO) 10.2 K/uL (4.8-10.8)
[2022-02-24 08:06] LABS: A/G RATIO 0.6 (0.7-1.7); ALBUMIN 2.4 g/dL (2.9-4.4); ALPHA-1-GLOBULIN 0.5 g/dL (0.0-0.4); ALPHA-2-GLOBULIN 1.4 g/dL (0.4-1.0); BETA GLOBULIN 1.1 g/dL (0.7-1.3); GAMMA GLOBULIN 0.9 g/dL (0.4-1.8); M-SPIKE Not Observed g/dL (Not Observed)
[2022-02-24] MEDS: POLYETHYLENE GLYCOL 3350, 17 GM/ POWD.PACK PO SCH (10:12)
[2022-02-24] MEDS: DOCUSATE SODIUM 100 MG CAPSULE PO SCH ×2 (10:13→22:13)
[2022-02-24] MEDS: PANTOPRAZOLE SODIUM 40 MG TAB PO SCH (10:13)
[2022-02-24] MEDS: ATENOLOL 50 MG TABLET (TENORMIN) PO SCH (10:13)
[2022-02-24] MEDS: FLUCONAZOLE 100 MG TABLET (DIFLUCAN) PO SCH (10:13)
[2022-02-24] MEDS: BALSAM PERU/CASTOR OIL 56.7 GM OINT...G. TP SCH (10:14)
[2022-02-24] MEDS: HONEY WOUND DRESSING 1 EACH TP SCH (10:15)
[2022-02-24 11:39] VITALS: BP_SYST 131
[2022-02-24] MEDS ORDERED: fentaNYL 25 MCG/HR PATCH TD ONE (12:00)
[2022-02-24] MEDS: SODIUM POLYSTYRENE SULFONATE 15 GM/60 ML UDBTL PO ONE ×2 (12:29→12:48)
[2022-02-24 15:39] VITALS: BP_SYST 129
[2022-02-24] MEDS: WARFARIN SODIUM 1 MG TABLET PO SCH (18:22)
[2022-02-24 20:00] VITALS: BP_SYST 143
[2022-02-24] MEDS: CYCLOBENZAPRINE HCL 10 MG TABLET (FLEXERIL) PO SCH (22:13)
[2022-02-24] MEDS: SIMVASTATIN 40 MG TABLET PO SCH (22:13)
[2022-02-25 00:33] VITALS: BP_SYST 131
[2022-02-25] MEDS: HYDROcodone/ACETAMIN 10-325 MG TAB PO PRN ×3 (05:56→21:28)
[2022-02-25] MEDS: NORMAL SALINE 5 ML DISP.SYRIN IVF SCH ×3 (06:00→21:24)
[2022-02-25] MEDS: LEVOTHYROXINE SODIUM 0.05 MG TABLET PO SCH (07:06)
[2022-02-25] MEDS: D5/0.45 NS 1,000 ML IV SCH ×2 (07:07→15:08)
[2022-02-25 07:19] LABS: BASOPHILS # (AUTO) 0.1 K/uL (0.0-0.2); BASOPHILS % (AUTO) 0.7 % (0.0-2.0); EOSINOPHILS # (AUTO) 0.4 K/uL (0.0-0.4); EOSINOPHILS % (AUTO) 3.6 % (0.0-4.0); HEMATOCRIT 29.3 % (36-48); HEMOGLOBIN 9.4 g/dL (12.0-16.0); LYMPHOCYTES # (AUTO) 1.4 K/uL (1.0-5.5); LYMPHOCYTES % (AUTO) 11.4 % (20.5-51.5); MEAN CORPUSCULAR HEMOGLOBIN 29 pg (27-31); MEAN CORPUSCULAR HGB CONC 32 % (32-36); MEAN CORPUSCULAR VOLUME 89 fL (79.0-98.0); MONOCYTES # (AUTO) 0.9 K/uL (0.0-1.0); MONOCYTES % (AUTO) 7.3 % (1.7-9.3); NEUTROPHILS # (AUTO) 9.4 K/uL (1.8-7.7); PLATELET COUNT (AUTO) 411 K/uL (130-430); RED BLOOD CELL COUNT(AUTO) 3.31 MIL/uL (4.2-6.2); RED CELL DISTRIBUTION WIDTH 15.9 % (9.0-15.0); WHITE BLOOD COUNT (AUTO) 12.2 K/uL (4.8-10.8)
[2022-02-25 07:22] LABS: ANION GAP 9 (5-15); CALCIUM 8.8 mg/dL (8.4-11.0); CHLORIDE 105 mmol/L (98-107); CREATININE 1.58 mg/dL (0.55-1.30); GLUCOSE 90 mg/dL (70-99); UREA NITROGEN, BLOOD 73 mg/dL (8-21)
[2022-02-25 07:39] LABS: INR 2.9 (0.8-1.2)
[2022-02-25 07:42] LABS: PROTHROMBIN TIME 27.1 SECS (9.5-12.5)
[2022-02-25 08:27] LABS: ERYTHROCYTE SEDIMENTATION RATE 105 MM/HR (0-20)
[2022-02-25] MEDS: HONEY WOUND DRESSING 1 EACH TP SCH (10:04)
[2022-02-25] MEDS: DOCUSATE SODIUM 100 MG CAPSULE PO SCH ×2 (10:04→21:23)
[2022-02-25] MEDS: FLUCONAZOLE 100 MG TABLET (DIFLUCAN) PO SCH (10:04)
[2022-02-25] MEDS: PANTOPRAZOLE SODIUM 40 MG TAB PO SCH (10:04)
[2022-02-25] MEDS: ATENOLOL 50 MG TABLET (TENORMIN) PO SCH (10:04)
[2022-02-25] MEDS: POLYETHYLENE GLYCOL 3350, 17 GM/ POWD.PACK PO SCH (10:04)
[2022-02-25] MEDS: BALSAM PERU/CASTOR OIL 56.7 GM OINT...G. TP SCH (10:05)
[2022-02-25 11:26] VITALS: BP_SYST 127
[2022-02-25] MEDS: ALBUMIN HUMAN 25% 50 ML IV SCH ×3 (15:08→21:24)
[2022-02-25] MEDS: WARFARIN SODIUM 1 MG TABLET PO SCH (18:15)
[2022-02-25 18:20] VITALS: BP_SYST 126
[2022-02-25 20:25] VITALS: BP_SYST 115
[2022-02-25] MEDS: CYCLOBENZAPRINE HCL 10 MG TABLET (FLEXERIL) PO SCH (21:23)
[2022-02-25] MEDS: SIMVASTATIN 40 MG TABLET PO SCH (21:23)
[2022-02-26] VITALS: BP_SYST 108
[2022-02-26] MEDS: D5/0.45 NS 1,000 ML IV SCH ×3 (03:34→22:32)
[2022-02-26 04:00] VITALS: BP_SYST 110
[2022-02-26] MEDS: NORMAL SALINE 5 ML DISP.SYRIN IVF SCH ×3 (06:48→22:32)
[2022-02-26] MEDS: LEVOTHYROXINE SODIUM 0.05 MG TABLET PO SCH (06:48)
[2022-02-26 07:47] LABS: BASOPHILS # (AUTO) 0.1 K/uL (0.0-0.2); BASOPHILS % (AUTO) 1.1 % (0.0-2.0); EOSINOPHILS % (AUTO) 9.6 % (0.0-4.0); HEMOGLOBIN 8.5 g/dL (12.0-16.0); LYMPHOCYTES # (AUTO) 1.3 K/uL (1.0-5.5); LYMPHOCYTES % (AUTO) 12.6 % (20.5-51.5); MEAN CORPUSCULAR HEMOGLOBIN 29 pg (27-31); MEAN CORPUSCULAR HGB CONC 33 % (32-36); MEAN CORPUSCULAR VOLUME 90 fL (79.0-98.0); MONOCYTES % (AUTO) 9.8 % (1.7-9.3); NEUTROPHILS % (AUTO) 66.9 % (40.0-70.0); PLATELET COUNT (AUTO) 355 K/uL (130-430); RED BLOOD CELL COUNT(AUTO) 2.88 MIL/uL (4.2-6.2); RED CELL DISTRIBUTION WIDTH 16.3 % (9.0-15.0); WHITE BLOOD COUNT (AUTO) 10.5 K/uL (4.8-10.8)
[2022-02-26 08:08] VITALS: BP_SYST 118
[2022-02-26 08:27] LABS: ANION GAP 9 (5-15); CHLORIDE 103 mmol/L (98-107); CREATININE 1.18 mg/dL (0.55-1.30); GLUCOSE 94 mg/dL (70-99); INR 3.1 (0.8-1.2); PROTHROMBIN TIME 29.2 SECS (9.5-12.5); UREA NITROGEN, BLOOD 58 mg/dL (8-21)
[2022-02-26] MEDS: DOCUSATE SODIUM 100 MG CAPSULE PO SCH ×2 (09:53→20:38)
[2022-02-26] MEDS: PANTOPRAZOLE SODIUM 40 MG TAB PO SCH (09:54)
[2022-02-26] MEDS: FLUCONAZOLE 100 MG TABLET (DIFLUCAN) PO SCH (09:54)
[2022-02-26] MEDS: ATENOLOL 50 MG TABLET (TENORMIN) PO SCH (09:54)
[2022-02-26] MEDS: POLYETHYLENE GLYCOL 3350, 17 GM/ POWD.PACK PO SCH (09:54)
[2022-02-26] MEDS: HYDROcodone/ACETAMIN 10-325 MG TAB PO PRN ×2 (10:06→20:39)
[2022-02-26 11:42] VITALS: BP_SYST 129
[2022-02-26] MEDS: fentaNYL 25 MCG/HR PATCH TD SCH (12:16)
[2022-02-26] MEDS: BALSAM PERU/CASTOR OIL 56.7 GM OINT...G. TP SCH (12:16)
[2022-02-26] MEDS: HONEY WOUND DRESSING 1 EACH TP SCH (12:16)
[2022-02-26] MEDS ORDERED: MORPHINE 2 MG/ML INJ. SYRINGE IVP PRN (14:30)
[2022-02-26] MEDS ORDERED: LORazepam 2 MG/ML VIAL IVP ONE (14:45)
[2022-02-26 15:03] VITALS: BP_SYST 135
[2022-02-26 20:32] VITALS: BP_SYST 142
[2022-02-26] MEDS: CYCLOBENZAPRINE HCL 10 MG TABLET (FLEXERIL) PO SCH (20:38)
[2022-02-26] MEDS: SIMVASTATIN 40 MG TABLET PO SCH (20:38)
[2022-02-27 00:38] VITALS: BP_SYST 153
[2022-02-27] MEDS: LEVOTHYROXINE SODIUM 0.05 MG TABLET PO SCH (06:46)
[2022-02-27] MEDS: NORMAL SALINE 5 ML DISP.SYRIN IVF SCH ×3 (06:46→21:48)
[2022-02-27 09:29] LABS: INR 2.7 (0.8-1.2); PROTHROMBIN TIME 25.5 SECS (9.5-12.5)
[2022-02-27] MEDS: D5/0.45 NS 1,000 ML IV SCH ×2 (09:44→18:48)
[2022-02-27] MEDS: POLYETHYLENE GLYCOL 3350, 17 GM/ POWD.PACK PO SCH (10:16)
[2022-02-27] MEDS: PANTOPRAZOLE SODIUM 40 MG TAB PO SCH (10:16)
[2022-02-27] MEDS: HYDROcodone/ACETAMIN 10-325 MG TAB PO PRN ×2 (10:16→21:52)
[2022-02-27] MEDS: ATENOLOL 50 MG TABLET (TENORMIN) PO SCH (10:16)
[2022-02-27] MEDS: DOCUSATE SODIUM 100 MG CAPSULE PO SCH ×2 (10:16→21:47)
[2022-02-27] MEDS: BALSAM PERU/CASTOR OIL 56.7 GM OINT...G. TP SCH (10:17)
[2022-02-27] MEDS: HONEY WOUND DRESSING 1 EACH TP SCH (10:17)
[2022-02-27 11:30] VITALS: BP_SYST 150
[2022-02-27 16:00] VITALS: BP_SYST 112
[2022-02-27] MEDS ORDERED: POLY17PO4 PO (16:54)
[2022-02-27] MEDS ORDERED: DOCU-144 PO (16:54)
[2022-02-27] MEDS: WARFARIN SODIUM 1 MG TABLET PO SCH (18:00)
[2022-02-27 20:00] VITALS: BP_SYST 152
[2022-02-27 21:00] VITALS: BP_SYST 137
[2022-02-27] MEDS: CYCLOBENZAPRINE HCL 10 MG TABLET (FLEXERIL) PO SCH (21:47)
[2022-02-27] MEDS: SIMVASTATIN 40 MG TABLET PO SCH (21:47)
[2022-02-28] MEDS: ACETAMINOPHEN 325 MG TABLET PO PRN (01:05)
[2022-02-28] MEDS: NORMAL SALINE 5 ML DISP.SYRIN IVF SCH ×3 (06:16→21:36)
[2022-02-28] MEDS: LEVOTHYROXINE SODIUM 0.05 MG TABLET PO SCH (06:16)
[2022-02-28] MEDS: D5/0.45 NS 1,000 ML IV SCH ×3 (06:17→21:36)
[2022-02-28 08:00] VITALS: BP_SYST 140
[2022-02-28 09:17] LABS: ANION GAP 9 (5-15); CALCIUM 9.2 mg/dL (8.4-11.0); CHLORIDE 106 mmol/L (98-107); GLUCOSE 100 mg/dL (70-99); UREA NITROGEN, BLOOD 27 mg/dL (8-21)
[2022-02-28 09:47] LABS: WHITE BLOOD COUNT (AUTO) 9.5 K/uL (4.8-10.8)
[2022-02-28 09:48] LABS: BASOPHILS # (AUTO) 0.1 K/uL (0.0-0.2); BASOPHILS % (AUTO) 1.1 % (0.0-2.0); EOSINOPHILS # (AUTO) 0.6 K/uL (0.0-0.4); EOSINOPHILS % (AUTO) 5.8 % (0.0-4.0); HEMATOCRIT 27.4 % (36-48); HEMOGLOBIN 8.9 g/dL (12.0-16.0); LYMPHOCYTES # (AUTO) 1.2 K/uL (1.0-5.5); LYMPHOCYTES % (AUTO) 12.2 % (20.5-51.5); MEAN CORPUSCULAR HEMOGLOBIN 29 pg (27-31); MEAN CORPUSCULAR HGB CONC 33 % (32-36); MEAN CORPUSCULAR VOLUME 90 fL (79.0-98.0); MONOCYTES # (AUTO) 1.2 K/uL (0.0-1.0); MONOCYTES % (AUTO) 12.3 % (1.7-9.3); NEUTROPHILS # (AUTO) 6.5 K/uL (1.8-7.7); NEUTROPHILS % (AUTO) 68.6 % (40.0-70.0); PLATELET COUNT (AUTO) 380 K/uL (130-430); RED BLOOD CELL COUNT(AUTO) 3.04 MIL/uL (4.2-6.2); RED CELL DISTRIBUTION WIDTH 16.2 % (9.0-15.0)
[2022-02-28] MEDS: DOCUSATE SODIUM 100 MG CAPSULE PO SCH ×2 (09:57→21:14)
[2022-02-28] MEDS: POLYETHYLENE GLYCOL 3350, 17 GM/ POWD.PACK PO SCH (09:58)
[2022-02-28] MEDS: BALSAM PERU/CASTOR OIL 56.7 GM OINT...G. TP SCH (09:58)
[2022-02-28] MEDS: PANTOPRAZOLE SODIUM 40 MG TAB PO SCH (09:58)
[2022-02-28] MEDS: HYDROcodone/ACETAMIN 10-325 MG TAB PO PRN ×2 (09:58→21:34)
[2022-02-28] MEDS: ATENOLOL 50 MG TABLET (TENORMIN) PO SCH (09:58)
[2022-02-28] MEDS: HONEY WOUND DRESSING 1 EACH TP SCH (09:59)
[2022-02-28 11:45] VITALS: BP_SYST 136
[2022-02-28 12:03] LABS: INR 2.2 (0.8-1.2); PROTHROMBIN TIME 21.5 SECS (9.5-12.5)
[2022-02-28] MEDS: fentaNYL 25 MCG/HR PATCH TD SCH (12:40)
[2022-02-28 15:16] VITALS: BP_SYST 138
[2022-02-28 20:28] VITALS: BP_SYST 143
[2022-02-28] MEDS: SIMVASTATIN 40 MG TABLET PO SCH (21:15)
[2022-02-28] MEDS: CYCLOBENZAPRINE HCL 10 MG TABLET (FLEXERIL) PO SCH (21:15)
[2022-03-01 00:43] VITALS: BP_SYST 147
[2022-03-01] MEDS: NORMAL SALINE 5 ML DISP.SYRIN IVF SCH ×2 (06:31→13:11)
[2022-03-01] MEDS: LEVOTHYROXINE SODIUM 0.05 MG TABLET PO SCH (06:31)
[2022-03-01 08:00] VITALS: BP_SYST 146
[2022-03-01] MEDS: D5/0.45 NS 1,000 ML IV SCH (09:07)
[2022-03-01] MEDS: PANTOPRAZOLE SODIUM 40 MG TAB PO SCH (09:07)
[2022-03-01] MEDS: DOCUSATE SODIUM 100 MG CAPSULE PO SCH (09:07)
[2022-03-01] MEDS: ATENOLOL 50 MG TABLET (TENORMIN) PO SCH (09:08)
[2022-03-01] MEDS: BALSAM PERU/CASTOR OIL 56.7 GM OINT...G. TP SCH (09:08)
[2022-03-01] MEDS: POLYETHYLENE GLYCOL 3350, 17 GM/ POWD.PACK PO SCH (09:08)
[2022-03-01] MEDS: HONEY WOUND DRESSING 1 EACH TP SCH (09:08)
[2022-03-01 11:45] VITALS: BP_SYST 146
[2022-03-01] MEDS ORDERED: ANUSOL 1 EA SUPP.RECT (PREPARATION H) RC ONE (13:00)
[2022-03-01] MEDS ORDERED: MINERAL OIL 30 ML UDC PO ONE (13:15)
[2022-03-01 15:13] VITALS: BP_SYST 148
[2022-03-02] MEDS ORDERED: MINERAL OIL 30 ML UDC PO SCH (09:00)
[2022-03-03 11:42] LABS: IMMUNOGLOBULIN G, SERUM 891; IMMUNOGLOBULIN M, SERUM 52; SPE INTERPRETATION SEE SEPERATE REPORT
[2022-03-03 11:43] LABS: KAPPA & LAMBDA LT CHAIN RATIO 1.18 ratio (0.26-1.65)
[2022-03-03 11:44] LABS: ALBUMIN, UR 7.5; ALPHA-2-GLOBULIN, UR 10.8; BETA GLOBULIN, UR 41.4; GAMMA GLOBULIN, UR 24.3
== END 2022-03-01 15:20 | DRG 871 ==
LOC: SED 16:15 → SMU 23:24
PROVIDERS: ADMIT Preventive Medicine Preventive Medicine/Occupational Environmental Medicine; ATTEND Specialist
DX: A41.9 Sepsis, unspecified organism (principal); N17.0 Acute kidney failure with tubular necrosis; N39.0 Urinary tract infection, site not specified; K62.5 Hemorrhage of anus and rectum; E44.0 Moderate protein-calorie malnutrition; E78.00 Pure hypercholesterolemia, unspecified; E03.9 Hypothyroidism, unspecified; E83.39 Other disorders of phosphorus metabolism; R73.9 Hyperglycemia, unspecified; G89.4 Chronic pain syndrome; I10 Essential (primary) hypertension; E78.5 Hyperlipidemia, unspecified; M89.551 Osteolysis, right thigh; K59.00 Constipation, unspecified; D64.9 Anemia, unspecified; Z20.822 Contact with and (suspected) exposure to COVID-19; Z96.641 Presence of right artificial hip joint; E83.41 Hypermagnesemia; D75.839 Thrombocytosis, unspecified; Z79.891 Long term (current) use of opiate analgesic; Z79.899 Other long term (current) drug therapy; Z79.01 Long term (current) use of anticoagulants; Z68.28 Body mass index [BMI] 28.0-28.9, adult
CPT/HCPCS: 36415; 71045; 72192-TC; 73502; 73560-TC; 76376; 80048; 80053; 81000; 82784; 83605; 83735; 84100; 84155; 84156; 84165; 85025; 85610-TC; 85651-TC; 85730-TC; 86140; 86335; 86886; 86900; 86901; 87040; 87086; 93005; 96365; 97110-GP; 97112-GP; 97116-GP; 97163-GP; 97530-GP; 99285; A9503; J0696; J1450; J1885; J2060; J2270; J7040; J7050; P9046

== ENCOUNTER 2022-04-11 12:26 | Inpatient (IN) | payer OTHER ==
[~2022-04-11] VITALS: Ht 160 cm; Wt 59.0 kg
[~2022-04-11 12:26] MED LIST changes: +ATEN-168 PO; +DOCU-144 PO; +HYDR-3927 PO; +POLY17PO4 PO; -SIMV40TA2 PO; +SYN50 PO; +WARF1TAB84 PO
[2022-04-11 12:29] VITALS: BP_SYST 114
--- NOTE | 2022-04-11 12:29 | NUR ---
RECEIVED PT FROM DAVID CALLAWAY. PT TERE BRAVO FOR C/O CONSTIPATION. PT IS AAOX3-4 WITH EPISODES OF CONFUSION. PT IS DIALYSIS PT, INCONTNENT OF STOOL AND URINE, PT STATES SHE STILL URINATES EVERY FEW DAY. NORMAL S1S2 NOTED. DENIES N/V. SKIN CDI, NO EDEMA NOTED, DISTAL PULSES NORMAL. DENIES PAIN.
--- NOTE | 2022-04-11 13:00 | NUR ---
IV CATH TO LFA 20G. FLUSHED AND PATENT.
[2022-04-11 13:23] LABS: BASOPHILS # (AUTO) 0.1 K/uL (0.0-0.2); BASOPHILS % (AUTO) 0.4 % (0.0-2.0); EOSINOPHILS # (AUTO) 0.1 K/uL (0.0-0.4); EOSINOPHILS % (AUTO) 0.5 % (0.0-4.0); HEMATOCRIT 35.4 % (36-48); HEMOGLOBIN 11.3 g/dL (12.0-16.0); LYMPHOCYTES # (AUTO) 1.5 K/uL (1.0-5.5); LYMPHOCYTES % (AUTO) 8.5 % (20.5-51.5); MEAN CORPUSCULAR HEMOGLOBIN 28 pg (27-31); MEAN CORPUSCULAR HGB CONC 32 % (32-36); MEAN CORPUSCULAR VOLUME 88 fL (79.0-98.0); MONOCYTES # (AUTO) 1.5 K/uL (0.0-1.0); MONOCYTES % (AUTO) 8.1 % (1.7-9.3); NEUTROPHILS # (AUTO) 14.8 K/uL (1.8-7.7); NEUTROPHILS % (AUTO) 82.5 % (40.0-70.0); PLATELET COUNT (AUTO) 616 K/uL (130-430); RED BLOOD CELL COUNT(AUTO) 4.01 MIL/uL (4.2-6.2); RED CELL DISTRIBUTION WIDTH 15.9 % (9.0-15.0)
[2022-04-11 13:41] LABS: ANION GAP 13 (5-15); CALCIUM 10.4 mg/dL (8.4-11.0); CHLORIDE 97 mmol/L (98-107); GLUCOSE 103 mg/dL (70-99); LIPASE 38 U/L (73-393); UREA NITROGEN, BLOOD 48 mg/dL (8-21)
--- NOTE | 2022-04-11 13:50 | NUR ---
BLOOD OBTAINED AND TAKEN TO LAB. URINE OBTAINED AND TAKEN TO LAB.
--- NOTE | 2022-04-11 14:35 | NUR ---
DR. CABRERA AT BEDSIDE TO ASSESS PT.
[2022-04-11 14:40] LABS: BILIRUBIN,URINE NEGATIVE (NEGATIVE); BLOOD, URINE 1+ (NEGATIVE); COLOR,URINE YELLOW (YELLOW); GLUCOSE,URINE NEGATIVE (NEGATIVE); KETONES,URINE NEGATIVE (NEGATIVE); LEUKOCYTE ESTERASE ,URINE 2+ (NEGATIVE); NITRITE, URINE NEGATIVE (NEGATIVE); PROTEIN URINE 1+ (NEGATIVE); UROBILINOGEN,URINE 0.2 (0.2-1.0)
[2022-04-11 14:44] LABS: BACTERIA,URINE FEW /HPF (None Seen); CLARITY/URINE HAZY (CLEAR); RBC,URINE 0-3 /HPF (0-3); WBC,URINE 50-80 /HPF (0-3)
[2022-04-11 14:45] LABS: MUCUS,URINE None Seen /LPF (None Seen)
[2022-04-11] MEDS ORDERED: cefTRIAXone 1 GM in D5W 50 ML IV ONE (15:00)
[2022-04-11] MEDS ORDERED: NACL 0.9% 1,000 ML IV ONE (15:00)
[2022-04-11] MEDS ORDERED: cefTRIAXone 1 GM VIAL ONE (15:06)
--- NOTE | 2022-04-11 15:10 | NUR ---
ROCHEPHIN IVPB INITIATED TO BE COMPLETED AT 1340. 1000ML NS BOLUS INITIATED TO BE COMPLETED AT 1611.
--- NOTE | 2022-04-11 15:25 | NUR ---
Admit bed requested Patient will be admitted to care of . Admitted to TELEMETRY unit. Diagnosis URINARY TRACK INFECTION, ACUTE KIDNEY INJURY Inpatient (Yes or No) YES Observation (Yes or No) NO Orientation concerns or request close to nursing station (Yes or No) NO Covid Status NEGATIVE On vent or bipap YES Isolation requirements NONE Needs a sitter YES From Home (Yes or if No enter name of facility) YES Requires Dialysis (Yes or No) NO Med Rec Completed (Yes of No) YES
[2022-04-11] MEDS ORDERED: D5/0.45 NS 1,000 ML IV ONE (15:30)
[2022-04-11] MEDS ORDERED: KCL 40 mEq in 100 mL (PREMIX) 100 ML IV ONE (15:30)
--- NOTE | 2022-04-11 16:06 | NUR ---
Admit bed requested Patient will be admitted to care of . Admitted to TELEMETRY unit. Diagnosis UTI, SHIMA Inpatient (Yes or No) YES Observation (Yes or No) NO Orientation concerns or request close to nursing station (Yes or No) NO Covid Status NEGATIVE On vent or bipap NO Isolation requirements NO Needs a sitter YES From Home (Yes or if No enter name of facility) YES Requires Dialysis (Yes or No) NO Med Rec Completed (Yes of No) UNAVAILABLE AT THIS TIME.
--- NOTE | 2022-04-11 16:07 | NUR ---
SPOKE TO PT'S FAMILY MEMBER AND REQUESTED MEDICATION LIST, SHE STATED SHE WILL HAVE SOMEONE CALL LATER TO UPDATE IT.
[2022-04-11] MEDS: POTASSIUM CHLORIDE 20 mEq in 100 mL (PREMIX) 100 ML x 2 doses IV SCH ×2 (16:24→17:30)
[2022-04-11 16:56] LABS: TOTAL BILIRUBIN 0.3 mg/dL (0.0-1.0)
[2022-04-11 16:57] LABS: ALANINE AMINOTRANSFERASE 13 U/L (12-78); ALBUMIN 2.2 g/dL (3.4-4.8); ASPARTATE AMINOTRANSFERASE 22 U/L (10-37)
[2022-04-11] MEDS ORDERED: POTASSIUM CHLORIDE 20 MEQ/PKT PACKET PO ONE (17:30)
--- NOTE | 2022-04-11 17:33 | NUR ---
Belongings list complete.
--- NOTE | 2022-04-11 18:08 | NUR ---
D/C KCL IVPB, NEW ORDER FOR KCL 40MEQ PO GIVEN FOR K+= 3.0.
--- NOTE | 2022-04-11 18:26 | NUR ---
Admission Note Received patient from ER with diagnosis of UTI/SHIMA. Initial Plan of Care discussed-patient verbalized her understanding. Vital signs stable. Oriented to room, call light, pain management and safety.
--- NOTE | 2022-04-11 18:28 | NUR ---
Patient will be admitted to care of DAVID JACK. Admitted to TELEMETRY unit. Will go to room 122A. Belongings list completed. Complete and up to date summary report printed. SBAR report to be given at bedside with opportunity for questions.
[2022-04-11 19:13] VITALS: BP_SYST 127
--- NOTE | 2022-04-11 19:55 | NUR ---
CONSULTATION PAGED/CALLED Reason for Consultation: SHIMA Person Who was Notified: ELVIRA Consulting Physician: DR. JUSTIN GILLIS Councilman Specialty: NEPHROLOGY Ordering Physician: DR. GRECO Addendum: 04/11/22 at 1999 by Danielle Mcclelland RN DR. BILLINGS AS400 PROGRAMMER ANALYST FOR DR. GILLIS
[2022-04-11 20:00] VITALS: BP_SYST 115
[2022-04-11] MEDS ORDERED: ACETAMINOPHEN 325 MG TABLET PO PRN (21:00)
[2022-04-11] MEDS ORDERED: ONDANSETRON HCL 4 MG/2 ML VIAL IVP PRN (21:00)
[2022-04-11] MEDS ORDERED: NALOXONE HCL 0.4 MG/ML AMP (NARCAN) IVP PRN ×2 (21:15)
[2022-04-11] MEDS ORDERED: ACETAMINOPHEN/CODEINE 300 MG-30 MG TABLET PO PRN (21:15)
[2022-04-11] MEDS ORDERED: LORazepam 2 MG/ML VIAL IVP PRN (21:15)
[2022-04-11] MEDS: DOCUSATE SODIUM 100 MG CAPSULE PO SCH (22:19)
[2022-04-11] MEDS: OXYCODONE/ACETAMINOPHEN 5-325 TABLET PO PRN (22:21)
[2022-04-12 01:44] VITALS: BP_SYST 85
--- NOTE | 2022-04-12 05:14 | NUR ---
CONSULTATION PAGED/CALLED Reason for Consultation: LEUCKOCYTOSIS Person Who was Notified: TRENA Consulting Physician: DR. NICOLSA Plywood Scarfer Tender Specialty: ID Ordering Physician: DR. ANGUS STOCKTON
[2022-04-12 06:23] LABS: ANION GAP 9 (5-15); CHLORIDE 102 mmol/L (98-107); CREATININE 0.97 mg/dL (0.55-1.30); GLUCOSE 82 mg/dL (70-99); PHOSPHORUS 3.2 mg/dL (2.7-4.5); UREA NITROGEN, BLOOD 36 mg/dL (8-21)
[2022-04-12 06:27] LABS: BASOPHILS # (AUTO) 0.1 K/uL (0.0-0.2); BASOPHILS % (AUTO) 0.7 % (0.0-2.0); EOSINOPHILS # (AUTO) 0.1 K/uL (0.0-0.4); EOSINOPHILS % (AUTO) 0.5 % (0.0-4.0); HEMOGLOBIN 10.2 g/dL (12.0-16.0); LYMPHOCYTES # (AUTO) 1.5 K/uL (1.0-5.5); LYMPHOCYTES % (AUTO) 9.8 % (20.5-51.5); MEAN CORPUSCULAR HEMOGLOBIN 28 pg (27-31); MEAN CORPUSCULAR HGB CONC 32 % (32-36); MEAN CORPUSCULAR VOLUME 87 fL (79.0-98.0); MONOCYTES # (AUTO) 1.5 K/uL (0.0-1.0); MONOCYTES % (AUTO) 9.6 % (1.7-9.3); NEUTROPHILS % (AUTO) 79.4 % (40.0-70.0); PLATELET COUNT (AUTO) 688 K/uL (130-430); RED BLOOD CELL COUNT(AUTO) 3.68 MIL/uL (4.2-6.2); RED CELL DISTRIBUTION WIDTH 15.9 % (9.0-15.0); WHITE BLOOD COUNT (AUTO) 15.1 K/uL (4.8-10.8)
[2022-04-12] MEDS: LEVOTHYROXINE SODIUM 0.05 MG TABLET PO SCH (06:35)
[2022-04-12] MEDS ORDERED: ACETAMINOPHEN 325 MG TABLET PO PRN (07:00)
--- NOTE | 2022-04-12 07:30 | NUR ---
Report received from maintenance supervisor 2nd shift RN for continuity of care. Patient stable condition.
[2022-04-12 07:58] VITALS: BP_SYST 121
[2022-04-12] MEDS: DOCUSATE SODIUM 100 MG CAPSULE PO SCH ×2 (08:43→21:49)
[2022-04-12] MEDS: ATENOLOL 50 MG TABLET (TENORMIN) PO SCH (08:43)
[2022-04-12] MEDS: LOSARTAN POTASSIUM 50 MG TABLET (COZAAR) PO SCH (08:44)
[2022-04-12] MEDS: PANTOPRAZOLE SODIUM 40 MG TAB PO SCH (08:44)
[2022-04-12] MEDS: POLYETHYLENE GLYCOL 3350, 17 GM/ POWD.PACK PO SCH (08:44)
[2022-04-12] MEDS: HYDROCHLOROTHIAZIDE 25 MG TABLET (HCTZ) PO SCH (08:44)
[2022-04-12] MEDS: OXYCODONE/ACETAMINOPHEN 5-325 TABLET PO PRN ×2 (08:55→21:50)
[2022-04-12] MEDS ORDERED: LOSARTAN/HYDROCHLOROTHIAZIDE TAB (HYZAAR 50-12.5 MG) PO SCH (09:00)
[2022-04-12 12:09] VITALS: BP_SYST 106
[2022-04-12 12:55] LABS: INR 2.4 (0.8-1.2); PROTHROMBIN TIME 23.7 SECS (9.5-12.5)
[2022-04-12] MEDS ORDERED: cefTRIAXone 1 GM IVPB PREMIX 50 ML IV SCH (15:00)
[2022-04-12 18:00] VITALS: BP_SYST 108
--- NOTE | 2022-04-12 18:21 | NUR ---
Endorsed to hotel night auditor patient situation for continuity of care. No active distress noted.
[2022-04-12] MEDS: metroNIDAZOLE 250 mg/NS 50 ML IV SCH ×2 (18:33→21:18)
[2022-04-12] MEDS: WARFARIN SODIUM 1 MG TABLET PO SCH (18:35)
[2022-04-12 19:00] VITALS: BP_SYST 110
[2022-04-12 20:00] VITALS: BP_SYST 105
--- NOTE | 2022-04-12 23:00 | NUR ---
;a paged.pt.presents cough,congestion;chest. apprised pt's respiratory status per dary;laborer cook house. ordered robitussin;10ml q-6hrs/prn,inh:duo-neb;q-4hrs/q-4hrs.prn.
[2022-04-12] MEDS: IPRATROPIUM/ALBUTEROL SULFATE 3 ML AMPUL.NEB (DUONEB) INH SCH (23:30)
[2022-04-12] MEDS ORDERED: IPRATROPIUM/ALBUTEROL SULFATE 3 ML AMPUL.NEB (DUONEB) INH PRN (23:30)
[2022-04-12] MEDS: guaiFENesin/DEXTROMETHORPHAN 10 ML UDC PO PRN (23:41)
--- NOTE | 2022-04-12 23:45 | NUR ---
robitussin;10ml administered.respiratory/tech paged r/e initial inh duo-neb treatment.medication education provided to the pt.
[2022-04-13] VITALS (7 sets, daily range): BP systolic 98–133
--- NOTE | 2022-04-13 02:00 | NUR ---
pt.assessed.pt.quiescent.02-sat%=96%.per flacc pain mgx pt.absent facial grimaces/body posturing.pt.assessed for cleanliess pt.repositioned.call light/telephone placed w/in access of the pt.
[2022-04-13] MEDS: IPRATROPIUM/ALBUTEROL SULFATE 3 ML AMPUL.NEB (DUONEB) INH SCH ×6 (03:00→23:00)
--- NOTE | 2022-04-13 04:00 | NUR ---
pt.assessed.pt.quiescent.o2-sat%=96%.per flacc pain mgx pt.absent facial grimaces/body posturing.pt.assessed for cleanliness pt.repositioned.picc-line intact.call light/telephone placed w/in access of the pt.
[2022-04-13] MEDS: metroNIDAZOLE 250 mg/NS 50 ML IV SCH ×3 (05:14→23:04)
[2022-04-13] MEDS: guaiFENesin/DEXTROMETHORPHAN 10 ML UDC PO PRN ×2 (05:31→07:58)
--- NOTE | 2022-04-13 06:15 | NUR ---
pt.assessed.pt.quiescent.02-sat%=96%.no c/o pain,nausea.pt.requested robitussin;administered.pt.assessed for cleanliness pt.repositioned.diflucan;abx ivpb 0600a dose administered.call light/telephone placed w/in access of the pt.
[2022-04-13] MEDS: LEVOTHYROXINE SODIUM 0.05 MG TABLET PO SCH (06:40)
[2022-04-13 07:11] LABS: BASOPHILS # (AUTO) 0.1 K/uL (0.0-0.2); BASOPHILS % (AUTO) 0.5 % (0.0-2.0); EOSINOPHILS # (AUTO) 0.1 K/uL (0.0-0.4); EOSINOPHILS % (AUTO) 0.6 % (0.0-4.0); HEMATOCRIT 29.6 % (36-48); HEMOGLOBIN 9.6 g/dL (12.0-16.0); LYMPHOCYTES # (AUTO) 1.4 K/uL (1.0-5.5); LYMPHOCYTES % (AUTO) 10.2 % (20.5-51.5); MEAN CORPUSCULAR HEMOGLOBIN 28 pg (27-31); MEAN CORPUSCULAR HGB CONC 32 % (32-36); MEAN CORPUSCULAR VOLUME 87 fL (79.0-98.0); MONOCYTES # (AUTO) 1.4 K/uL (0.0-1.0); NEUTROPHILS # (AUTO) 11.1 K/uL (1.8-7.7); NEUTROPHILS % (AUTO) 78.7 % (40.0-70.0); PLATELET COUNT (AUTO) 622 K/uL (130-430); RED BLOOD CELL COUNT(AUTO) 3.41 MIL/uL (4.2-6.2); RED CELL DISTRIBUTION WIDTH 16.1 % (9.0-15.0)
--- NOTE | 2022-04-13 07:30 | NUR ---
Report received from shift commander RN for continuity of care. Patient in stable condition.
[2022-04-13] MEDS: PANTOPRAZOLE SODIUM 40 MG TAB PO SCH (07:56)
[2022-04-13] MEDS: HYDROCHLOROTHIAZIDE 25 MG TABLET (HCTZ) PO SCH (07:57)
[2022-04-13] MEDS: LOSARTAN POTASSIUM 50 MG TABLET (COZAAR) PO SCH (07:57)
[2022-04-13] MEDS: POLYETHYLENE GLYCOL 3350, 17 GM/ POWD.PACK PO SCH (07:58)
[2022-04-13] MEDS: ATENOLOL 50 MG TABLET (TENORMIN) PO SCH (07:58)
[2022-04-13 08:07] LABS: ALANINE AMINOTRANSFERASE 10 U/L (12-78); ALBUMIN 1.8 g/dL (3.4-4.8); ANION GAP 10 (5-15); ASPARTATE AMINOTRANSFERASE 14 U/L (10-37); CALCIUM 9.7 mg/dL (8.4-11.0); CHLORIDE 102 mmol/L (98-107); CREATININE 0.78 mg/dL (0.55-1.30); GLUCOSE 108 mg/dL (70-99); PHOSPHORUS 3.5 mg/dL (2.7-4.5); TOTAL BILIRUBIN 0.3 mg/dL (0.0-1.0); UREA NITROGEN, BLOOD 25 mg/dL (8-21)
[2022-04-13] MEDS: DOCUSATE SODIUM 100 MG CAPSULE PO SCH ×2 (08:09→21:10)
[2022-04-13 08:14] LABS: INR 3.3 (0.8-1.2)
[2022-04-13 08:44] LABS: C-REACTIVE PROTEIN QUANT 32.6 mg/dL (0-0.5)
[2022-04-13 09:03] LABS: ERYTHROCYTE SEDIMENTATION RATE 114 MM/HR (0-20)
[2022-04-13] MEDS: WARFARIN SODIUM 1 MG TABLET PO SCH (13:55)
[2022-04-13] MEDS: OXYCODONE/ACETAMINOPHEN 5-325 TABLET PO PRN ×2 (13:55→21:09)
[2022-04-13] MEDS ORDERED: POTASSIUM CHLORIDE 20 MEQ TAB.PRT.SR PO ONE (17:00)
--- NOTE | 2022-04-13 17:00 | NUR ---
made aware of potassium level. New orders noted and carried out.
--- NOTE | 2022-04-13 19:54 | NUR ---
Report given to weight shifter RN for continuity of care. Patient in stable condition.
--- NOTE | 2022-04-13 20:00 | NUR ---
OPENING NOTE PT LYING IN BED AND EYES OPENED. ALERT AND ORIENTED X4. PT COMPLAINED RIGHT LEG PAIN AND ASKED FOR PAIN MEDICATION. BREATHING EVEN AND NONLABORED ON RA. BED ALARM ON AND SAFETY CHECKS IN PLACE. CONTINUE TO MONITOR.
[2022-04-13] MEDS: CEFEPIME 2 GM in D5W 100 ML IV SCH (20:44)
--- NOTE | 2022-04-13 22:15 | NUR ---
ABD PAIN PT REPORTED ABD PAIN FROM CONSTIPATION AND CAN'T URINATE. PERFORMED BLADDER SCAN AND FOUND 356 mL RETAINED. REMOVED SOME STOOL FROM HER BOTTOM, PT STATED SOME RELIEVED. PAGED DR. GILLIS.
[2022-04-14 00:11] VITALS: BP_SYST 134
--- NOTE | 2022-04-14 01:00 | NUR ---
ROUNDING NOTE PT ABLE TO PUSH OUT HARD STOOL. PROVIDED PERINEAL CARE AND CHANGED NEW PAD. SOME PAIN RELIEVED. BED ALARM ON AND SAFETY CHECKS IN PLACE. CALL LIGHT IN REACH.
[2022-04-14] MEDS: IPRATROPIUM/ALBUTEROL SULFATE 3 ML AMPUL.NEB (DUONEB) INH SCH ×6 (03:00→23:00)
[2022-04-14 05:55] VITALS: BP_SYST 133
[2022-04-14] MEDS: LEVOTHYROXINE SODIUM 0.05 MG TABLET PO SCH (06:34)
--- NOTE | 2022-04-14 06:35 | NUR ---
CLOSING NOTE PT LYING IN BED AND EYES CLOSED. BREATHING EVEN AND NONLABORED ON RA. ADMINISTERED SYNTHROID ORDERED. NO S/S OF DISTRESS OR PAIN AT THIS MOMENT. ASSISTED REPOSITION. BED ALARM ON. SAFETY CHECKS IN PLACE. CALL LIGHT IN REACH.
[2022-04-14] MEDS: metroNIDAZOLE 250 mg/NS 50 ML IV SCH ×3 (06:56→22:47)
--- NOTE | 2022-04-14 07:30 | NUR ---
Report received from shift leader RN for continuity of care. Patient stable.
--- NOTE | 2022-04-14 07:30 | NUR ---
Report received from night assistant RN for continuity of care. Patient in stable condition.
[2022-04-14 07:52] LABS: BASOPHILS # (AUTO) 0.1 K/uL (0.0-0.2); BASOPHILS % (AUTO) 0.6 % (0.0-2.0); EOSINOPHILS # (AUTO) 0.2 K/uL (0.0-0.4); EOSINOPHILS % (AUTO) 1.2 % (0.0-4.0); HEMATOCRIT 29.8 % (36-48); HEMOGLOBIN 9.6 g/dL (12.0-16.0); LYMPHOCYTES # (AUTO) 1.5 K/uL (1.0-5.5); MEAN CORPUSCULAR HEMOGLOBIN 28 pg (27-31); MEAN CORPUSCULAR HGB CONC 32 % (32-36); MEAN CORPUSCULAR VOLUME 87 fL (79.0-98.0); MONOCYTES # (AUTO) 1.3 K/uL (0.0-1.0); MONOCYTES % (AUTO) 9.7 % (1.7-9.3); NEUTROPHILS # (AUTO) 10.7 K/uL (1.8-7.7); NEUTROPHILS % (AUTO) 77.5 % (40.0-70.0); PLATELET COUNT (AUTO) 613 K/uL (130-430); RED BLOOD CELL COUNT(AUTO) 3.44 MIL/uL (4.2-6.2); WHITE BLOOD COUNT (AUTO) 13.8 K/uL (4.8-10.8)
[2022-04-14 07:58] VITALS: BP_SYST 137
[2022-04-14 08:29] LABS: PROTHROMBIN TIME 38.3 SECS (9.5-12.5)
[2022-04-14 08:39] LABS: ANION GAP 10 (5-15); C-REACTIVE PROTEIN QUANT 24.8 mg/dL (0-0.5); CALCIUM 9.3 mg/dL (8.4-11.0); CHLORIDE 104 mmol/L (98-107); CREATININE 0.77 mg/dL (0.55-1.30); GLUCOSE 118 mg/dL (70-99); UREA NITROGEN, BLOOD 16 mg/dL (8-21)
[2022-04-14] MEDS: CEFEPIME 2 GM in D5W 100 ML IV SCH ×2 (08:42→20:04)
[2022-04-14] MEDS: DOCUSATE SODIUM 100 MG CAPSULE PO SCH ×2 (08:42→20:04)
[2022-04-14] MEDS: HYDROCHLOROTHIAZIDE 25 MG TABLET (HCTZ) PO SCH (08:43)
[2022-04-14] MEDS: LOSARTAN POTASSIUM 50 MG TABLET (COZAAR) PO SCH (08:43)
[2022-04-14] MEDS: POLYETHYLENE GLYCOL 3350, 17 GM/ POWD.PACK PO SCH (08:43)
[2022-04-14] MEDS: PANTOPRAZOLE SODIUM 40 MG TAB PO SCH (08:43)
[2022-04-14] MEDS: ATENOLOL 50 MG TABLET (TENORMIN) PO SCH (08:44)
[2022-04-14] MEDS: OXYCODONE/ACETAMINOPHEN 5-325 TABLET PO PRN ×2 (08:52→20:03)
[2022-04-14 10:39] LABS: ERYTHROCYTE SEDIMENTATION RATE 113 MM/HR (0-20)
[2022-04-14 11:10] VITALS: BP_SYST 134
--- NOTE | 2022-04-14 12:43 | NUR ---
Dr. Haynes made aware of coag result.
[2022-04-14 16:00] VITALS: BP_SYST 139
--- NOTE | 2022-04-14 16:05 | NUR ---
PHYSICAL THERAPY CO-SIGN The Physical Therapy Progress Notes documented by Manager Truck have been reviewed. Reviewed/Co-Signed by: Jenaro Troncoso Documentation Done by:ULISSES MORENO Addendum: 04/14/22 at 1606 by Jenaro Troncoso PT Amended: Links added.
--- NOTE | 2022-04-14 18:54 | NUR ---
Patient in stable condition. No distress. Endorsed to project coordinator rn RN for continuity of care.
--- NOTE | 2022-04-14 19:06 | NUR ---
Director Of Analytics re: hospice services Telephone call made to the sister, Laya, to discuss the recent consult for hospice services. Per Laya, the did call her to discuss and the family is interested in moving forward with hospice services. I inquired about using the doctor's preferred hospice, [facility], and the sister was unsure, as she had a brother on hospice and they were with a different agency. Laya could not recall the name of the other hospice, but stated she would call her sister to inquire about which hospice the family will use. Per Laya, she believes she received a phone call from [facility] a while back, but didn't move forward with hospice at the time. Laya states she will discuss further with her sister, and call the hospital back tomorrow to speak with the available social service assistant. Upon receiving the family's preferred hospice of a choice, a clinical packet will be sent to the said hospice for further follow up. A clinical packet has been started and left with another social service assistant for further follow up for tomorrow.
--- NOTE | 2022-04-14 19:30 | NUR ---
Report given to night stocker RN for continuity of care. Patient in stable condition.
[2022-04-14 19:35] VITALS: BP_SYST 141
--- NOTE | 2022-04-14 19:35 | NUR ---
INITIAL NOTE AT INITIAL ASSESSMENT, PATIENT IS RESTING IN BED, STABLE, NO SIGNS OF RESPIRATORY DISTRESS. PATIENT VERBALIZES SOME PAIN, PRN MEDICATION FOR HER PAIN WILL BE GIVEN AT THIS TIME. PLAN OF CARE FOR THE EVENING IS COMMUNICATED WITH THE PATIENT. PATIENT DEMONSTRATED BACK CORRECT USAGE OF CALL LIGHT, CALL LIGHT IS PLACE WITHIN REACH OF PATIENT. BED IS LOCKED, ALARMED, AND AT THE LOWEST LEVEL. FALL, SAFETY, RESPIRATORY, AND ASPIRATION PRECAUTIONS WILL BE IN PLACE THROUGHOUT THE SHIFT.
--- NOTE | 2022-04-14 19:36 | NUR ---
Report given to slot shift supervisor RN for continuity of care. Patient stable.
--- NOTE | 2022-04-14 22:15 | NUR ---
HYGIENE CARE PATIENT HAD A VOID AND BOWEL MOVEMENT, HYGIENE CARE PROVIDED AT THIS TIME. FRESH LINENS ALSO PROVIDED. PATIENT REPOSITIONED FOR COMFORT, SHE TOLERATED WELL.
--- NOTE | 2022-04-14 23:08 | NUR ---
PAGED : DR Caro GILLIS GAVE ORDER TO DOWNGRADE PT TO MED SURG STATUS .
[2022-04-15 00:58] VITALS: BP_SYST 131
[2022-04-15] MEDS: OXYCODONE/ACETAMINOPHEN 5-325 TABLET PO PRN (02:20)
[2022-04-15] MEDS: IPRATROPIUM/ALBUTEROL SULFATE 3 ML AMPUL.NEB (DUONEB) INH SCH ×6 (03:00→23:00)
--- NOTE | 2022-04-15 03:30 | NUR ---
HYGIENE CARE PATIENT HAD A VOID AND BOWEL MOVEMENT, HYGIENE CARE PROVIDED AT THIS TIME. FRESH LINENS ALSO PROVIDED. PATIENT REPOSITIONED FOR COMFORT, SHE TOLERATED WELL.
--- NOTE | 2022-04-15 06:07 | NUR ---
CLOSING NOTE PATIENT SLEPT WELL THROUGHOUT THE NIGHT, SHE VERBALIZED THAT PRN MEDICATION GIVEN TO HER FOR HER PAIN HELPED HER SLEEP THROUGH THE NIGHT. SHE MADE TWO BOWEL SMALL BOWEL MOVEMENTS. AT THIS TIME, SHE IS RESTING IN BED, STABLE, NO SIGNS OF RESPIRATORY DISTRESS. BED IS LOCKED, ALARMED, AND AT THE LOWEST LEVEL. FALL, SAFETY, RESPIRATORY, AND ASPIRATION PRECAUTIONS HAVE BEEN TAKEN THROUGHOUT THE SHIFT. WILL CONTINUE TO MONITOR UNTIL REPORT IS GIVEN AT BEDSIDE TO AM NURSE.
[2022-04-15] MEDS: metroNIDAZOLE 250 mg/NS 50 ML IV SCH ×3 (06:26→21:15)
[2022-04-15] MEDS: LEVOTHYROXINE SODIUM 0.05 MG TABLET PO SCH (06:26)
[2022-04-15 08:06] LABS: INR 4.6 (0.8-1.2); PROTHROMBIN TIME 43.2 SECS (9.5-12.5)
[2022-04-15 08:49] VITALS: BP_SYST 149
[2022-04-15] MEDS: DOCUSATE SODIUM 100 MG CAPSULE PO SCH ×2 (09:00→20:51)
[2022-04-15] MEDS: CEFEPIME 2 GM in D5W 100 ML IV SCH ×2 (10:06→20:52)
[2022-04-15] MEDS: PANTOPRAZOLE SODIUM 40 MG TAB PO SCH (10:06)
[2022-04-15] MEDS: ATENOLOL 50 MG TABLET (TENORMIN) PO SCH (10:07)
[2022-04-15] MEDS: LOSARTAN POTASSIUM 50 MG TABLET (COZAAR) PO SCH (10:07)
[2022-04-15] MEDS: POLYETHYLENE GLYCOL 3350, 17 GM/ POWD.PACK PO SCH (10:08)
[2022-04-15] MEDS: HYDROCHLOROTHIAZIDE 25 MG TABLET (HCTZ) PO SCH (10:08)
[2022-04-15] MEDS: HYDROcodone/ACETAMIN 5-325 MG TAB (NORCO/ VICODIN) PO PRN ×3 (10:08→20:52)
[2022-04-15 13:17] VITALS: BP_SYST 123
--- NOTE | 2022-04-15 15:57 | NUR ---
PHYSICAL THERAPY CO-SIGN The Physical Therapy Progress Notes documented by Fork Repairer have been reviewed. Reviewed/Co-Signed by: Frank Russo Documentation Done by:ULISSES MORENO Addendum: 04/15/22 at 1557 by Frank Russo PT Amended: Links added.
[2022-04-15 16:23] VITALS: BP_SYST 129
--- NOTE | 2022-04-15 17:14 | NUR ---
Information requested sent to [facility]-per Shane Lou-family has signed consent for Hospice w/ Sarah
[2022-04-15 20:00] VITALS: BP_SYST 122
[2022-04-16] VITALS (7 sets, daily range): BP systolic 110–141
[2022-04-16] MEDS: IPRATROPIUM/ALBUTEROL SULFATE 3 ML AMPUL.NEB (DUONEB) INH SCH ×6 (03:00→23:00)
--- NOTE | 2022-04-16 03:11 | NUR ---
SPOKE WITH [facility] ABOUT 04/16/22 10AM ESTHETICIAN/OWNER TIME. SISTER WAS UNSURE ABOUT WHICH HOSPICE COMPANY SHE WANTS HER BROTHER TO BE DISCHARGED TO. [facility] IS ON WILL CALL UNTIL FAMILY SPEAKS WITH OIL FIELD EQUIPMENT MECHANIC.
[2022-04-16] MEDS: OXYCODONE/ACETAMINOPHEN 5-325 TABLET PO PRN ×2 (04:59→14:16)
[2022-04-16] MEDS: metroNIDAZOLE 250 mg/NS 50 ML IV SCH ×3 (05:00→20:57)
[2022-04-16] MEDS: LEVOTHYROXINE SODIUM 0.05 MG TABLET PO SCH (06:02)
[2022-04-16 07:46] LABS: PROTHROMBIN TIME 37.7 SECS (9.5-12.5)
[2022-04-16] MEDS: CEFEPIME 2 GM in D5W 100 ML IV SCH ×2 (08:42→20:53)
[2022-04-16] MEDS: LOSARTAN POTASSIUM 50 MG TABLET (COZAAR) PO SCH (08:42)
[2022-04-16] MEDS: HYDROcodone/ACETAMIN 5-325 MG TAB (NORCO/ VICODIN) PO PRN ×2 (08:43→22:55)
[2022-04-16] MEDS: HYDROCHLOROTHIAZIDE 25 MG TABLET (HCTZ) PO SCH (08:44)
[2022-04-16] MEDS: POLYETHYLENE GLYCOL 3350, 17 GM/ POWD.PACK PO SCH (08:44)
[2022-04-16] MEDS: PANTOPRAZOLE SODIUM 40 MG TAB PO SCH (08:44)
[2022-04-16] MEDS: ATENOLOL 50 MG TABLET (TENORMIN) PO SCH (08:45)
[2022-04-16] MEDS: DOCUSATE SODIUM 100 MG CAPSULE PO SCH ×2 (08:45→20:58)
--- NOTE | 2022-04-16 08:55 | NUR ---
Received call from [facility]. She advised that the patient's family has signed with and the patient will be discharged today to go home on hospice. [facility] has requested the patient's discharge summary, discharge order, and current medication list. Transportation has been arranged with [facility] by for a pickle processor between 10:30a - 11a. DAVID Lora was not available, however a message was left with Desk Nurse, Amanda advising her of the patient's discharge arrangements. Requested information faxed to [facility]. [facility]: [phone] [facility]: [phone]
--- NOTE | 2022-04-16 10:13 | NUR ---
MARYA FROM [facility] CALLED TO UPDATE WITH THE TRANSPORTATION INFO. PUBLIC [employer]ILITIES SALES REPRESENTATIVE TIME WILL BE AT 12N BY [facility] TEL #[phone].
--- NOTE | 2022-04-16 11:34 | NUR ---
[facility] CALLED TO INFORM THAT THE RECEIVING SISTER IN THE PT'S HOME IS ILL. THE POSSIBILITY OF DISCHARGE TO HOME WITH HOSPICE MIGHT NOT HAPPEN TODAY. FORWARDED THE CALL TO CHARGE [facility].
--- NOTE | 2022-04-16 12:41 | NUR ---
Received call from Akua at [facility], who advised that the caregiver for the patient has advised the family that they are sick and are unable to receive the patient today. Per Akua, the sister in [place] is working to get another caregiver in place for the patient for today. Akua states the transportation is on will call and once the family gets a caregiver in place for the patient, will call the transport to pull off of will call. [facility]: [phone] [facility]: [phone]
--- NOTE | 2022-04-16 12:44 | NUR ---
[facility] WAS INFORMED THAT PT IS NOT LEAVING, STATUS CHANGED BACK TO WILL CALL.
--- NOTE | 2022-04-16 16:01 | NUR ---
PHYSICAL THERAPY CO-SIGN The Physical Therapy Progress Notes documented by Food Service Steward have been reviewed. Reviewed/Co-Signed by: Jenaro Troncoso Documentation Done by:ULISSES MORENO Addendum: 04/16/22 at 1601 by Jenaro Troncoso PT Amended: Links added.
[2022-04-17] VITALS: BP_SYST 111
[2022-04-17] MEDS: IPRATROPIUM/ALBUTEROL SULFATE 3 ML AMPUL.NEB (DUONEB) INH SCH ×3 (03:00→10:59)
[2022-04-17] MEDS: OXYCODONE/ACETAMINOPHEN 5-325 TABLET PO PRN ×2 (05:01→14:23)
[2022-04-17] MEDS: metroNIDAZOLE 250 mg/NS 50 ML IV SCH (05:06)
[2022-04-17] MEDS: LEVOTHYROXINE SODIUM 0.05 MG TABLET PO SCH (06:53)
[2022-04-17 07:01] LABS: BASOPHILS # (AUTO) 0.1 K/uL (0.0-0.2); BASOPHILS % (AUTO) 0.8 % (0.0-2.0); EOSINOPHILS # (AUTO) 0.5 K/uL (0.0-0.4); EOSINOPHILS % (AUTO) 3.1 % (0.0-4.0); HEMOGLOBIN 10.7 g/dL (12.0-16.0); LYMPHOCYTES # (AUTO) 1.7 K/uL (1.0-5.5); MEAN CORPUSCULAR HEMOGLOBIN 28 pg (27-31); MEAN CORPUSCULAR HGB CONC 32 % (32-36); MEAN CORPUSCULAR VOLUME 87 fL (79.0-98.0); MONOCYTES # (AUTO) 1.2 K/uL (0.0-1.0); MONOCYTES % (AUTO) 7.8 % (1.7-9.3); NEUTROPHILS % (AUTO) 77.3 % (40.0-70.0); PLATELET COUNT (AUTO) 563 K/uL (130-430); RED CELL DISTRIBUTION WIDTH 16.4 % (9.0-15.0); WHITE BLOOD COUNT (AUTO) 15.5 K/uL (4.8-10.8)
[2022-04-17 07:28] LABS: INR 3.1 (0.8-1.2)
[2022-04-17 08:06] VITALS: BP_SYST 111
--- NOTE | 2022-04-17 08:15 | NUR ---
PT REFUSED TX. SHE STATED SHE IS FINE AND WOULD LIKE TO SLEEP. NO DISTRESS NOTED. WILL CONTINUE TO MONITOR.
[2022-04-17] MEDS: POLYETHYLENE GLYCOL 3350, 17 GM/ POWD.PACK PO SCH (08:21)
[2022-04-17] MEDS: LOSARTAN POTASSIUM 50 MG TABLET (COZAAR) PO SCH (08:22)
[2022-04-17] MEDS: DOCUSATE SODIUM 100 MG CAPSULE PO SCH (08:23)
[2022-04-17] MEDS: ATENOLOL 50 MG TABLET (TENORMIN) PO SCH (08:23)
[2022-04-17] MEDS: HYDROCHLOROTHIAZIDE 25 MG TABLET (HCTZ) PO SCH (08:23)
[2022-04-17] MEDS: PANTOPRAZOLE SODIUM 40 MG TAB PO SCH (08:24)
[2022-04-17] MEDS: CEFEPIME 2 GM in D5W 100 ML IV SCH (08:25)
[2022-04-17] MEDS: HYDROcodone/ACETAMIN 5-325 MG TAB (NORCO/ VICODIN) PO PRN (08:26)
[2022-04-17] MEDS ORDERED: FLUCONAZOLE 100 mg/ NS 50 ML IV SCH (10:00)
--- NOTE | 2022-04-17 11:00 | NUR ---
ROUNDED FOR PTs 1100 TX SHE AGAIN STATED SHE WAS OK AND DIDNT WANT A TX. NO DISTRESS NOTED HR 85 SPO2 96% ON RA. WILL CONTINUE TO MONITOR.
[2022-04-17] MEDS ORDERED: DOXY-244 PO (11:10)
--- NOTE | 2022-04-17 11:11 | NUR ---
Follow up call made to Zoie at [facility] to inquire about the status of the patient's ability to discharge today. Per Zoie, the family has agreed to bring in caregivers through [facility] for a temporary basis until the caregiver is well enough to provide care again. [facility] will come in today to meet with patient at bedside to sign service consents. Transportation arrangements have been made with [facility] for a p/u today between 2p - 2:30p. I attempeted to notify DAVID Lora of the discharge arrangements, however he was not available. A message was left with desk nurse, Albert on the station. Zoie at [facility]: [phone] [facility]: [phone] [facility]: [phone]
--- NOTE | 2022-04-17 11:23 | NUR ---
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
[2022-04-17 12:02] VITALS: BP_SYST 111
--- NOTE | 2022-04-17 14:30 | NUR ---
PATIENT IS DISCHARGED OFF UNIT AT THIS TIME, TO HOME, TRANSPORTED VIA [facility]. PATIENT MEDICATED FOR PAIN FOR COMFORT DURING TRANSPORTATION. THIS SENIOR MARKETING ENGINEER(PRIMARY RN) GAVE REPORT TO AMBULANCE PERSONNEL. NO CONCERNS VOICED.
== END 2022-04-17 14:40 | disposition hospice, home (50) | DRG 871 ==
LOC: SED 12:26 → STU 15:16 → SMU 04-14 23:27
PROVIDERS: ADMIT Specialist; ATTEND Specialist
DX: A41.9 Sepsis, unspecified organism (principal); E43 Unspecified severe protein-calorie malnutrition; J69.0 Pneumonitis due to inhalation of food and vomit; N39.0 Urinary tract infection, site not specified; E87.1 Hypo-osmolality and hyponatremia; K59.00 Constipation, unspecified; E03.9 Hypothyroidism, unspecified; E78.00 Pure hypercholesterolemia, unspecified; K21.9 Gastro-esophageal reflux disease without esophagitis; E88.09 Other disorders of plasma-protein metabolism, not elsewhere classified; Z96.649 Presence of unspecified artificial hip joint; R73.9 Hyperglycemia, unspecified; E87.6 Hypokalemia; D75.839 Thrombocytosis, unspecified; Z20.822 Contact with and (suspected) exposure to COVID-19; D64.9 Anemia, unspecified; I10 Essential (primary) hypertension; Z87.440 Personal history of urinary (tract) infections; Z79.01 Long term (current) use of anticoagulants
CPT/HCPCS: 36415; 76376; 80048; 80053; 81000; 83690; 83735; 84100; 85025; 85610-TC; 85651-TC; 86140; 87040; 87086; 94640; 94760; 96361; 96365; 97110-GP; 97112-GP; 97163-GP; 97530-GP; 99285; G0378; J0692; J0696; J1450; J3480; J3490; J7060